=== PATIENT | female | born 1940 | race Two or more races ===

== ENCOUNTER → 2024-07-19 | Outpatient (CLI) | payer OTHER, MEDICAID, SELFPAY ==
[2024-07-19 12:54] LABS: Collection Type, Urine Clean Catch
[2024-07-19 13:06] LABS: Eosinophils % (Auto) 19 % (0-10); Hematocrit 36.4 % (36.0-46.0); Hemoglobin 11.8 g/dL (12.0-16.0); Lymphocytes % (Auto) 12 % (10-50); Mean Corpuscular HGB Conc 32.4 g/dl (31.0-37.0); Mean Corpuscular Hemoglobin 29.1 pg (25.0-35.0); Mean Corpuscular Volume 90 fL (80-100); Monocytes % (Auto) 6 % (0-12); Neutrophils % (Auto) 63 % (37-80); Platelet Count 244 Thou/mm3 (140-440); Red Blood Count 4.05 Miln/mm3 (4.00-5.20); White Blood Count 9.2 Thou/mm3 (3.6-11.0)
[2024-07-19 13:07] LABS: Basophils % (Auto) 0 % (0-2.5); Eosinophils # (Auto) 1.8 Thou/mm3 (0.0-0.5); Immature Granulocytes % (Auto) 0 % (0-0); Immature Granulocytes Auto 0.03 Thou/mm3 (0.00-0.00); Lymphocytes # (Auto) 1.1 Thou/mm3 (1.0-4.8); Monocytes # (Auto) 0.5 Thou/mm3 (0.0-0.8); Neutrophils # (Auto) 5.8 Thou/mm3 (1.8-7.7); Nucleated Red Blood Cell % 0 /100 WBC (0)
[2024-07-19 13:15] LABS: Bacteria,Urine 2+; Bilirubin,Urine Negative (Negative); Blood,Urine Negative (Negative); Clarity,Urine Clear (Clear/Hazy); Color,Urine Lt-Yellow (Lt Yel-Yel); Glucose, Urine Negative (Negative); Ketones,Urine Negative (Negative); Leukocyte Esterase,Urine Positive (Negative); Nitrite,Urine Positive (Negative); PH,Urine 6.5 (5.0-7.0); Protein,Urine Negative (Neg - Trace); RBC,Urine 4 /hpf (0-3); Specific Gravity,Urine 1.015 (1.001-1.035); Squamous Epithelial Cell,Urine < 1 /hpf (0-5); Urobilinogen,Urine Negative mg/dL (0.0-1.0); WBC,Urine 59 /hpf (0-5)
[2024-07-19 13:19] LABS: Glucose Estimated Average 160 mg/dL (80-131); Hemoglobin A1C 7.2 % Hgb (4.8-6.0)
[2024-07-19 13:22] LABS: Albumin, Serum 4.1 gm/dL (3.4-4.8); Anion Gap 10 (7-16); BUN/Creatinine Ratio 23 Ratio (12-20); Blood Urea Nitrogen 23 mg/dL (9-23); Calcium 9.5 mg/dL (8.3-10.6); Calcium (Corrected) 9.5 mg/dL (8.5-10.1); Carbon Dioxide 27.3 mMol/L (20.0-31.0); Chloride 102 mMol/L (98-107); Glucose 109 mg/dL (74-106); Osmolality,Calculated 282 (275-295); Phosphorous 4.1 mg/dL (2.4-5.1); Potassium 4.2 mMol/L (3.4-5.1); Sodium 139 mMol/L (136-145); eGFR 56 See Note
[2024-07-19 13:27] LABS: Culture Indicated,Urine Yes
[2024-07-20 02:07] LABS: Parathyroid Hormone Intact 35.5 pg/ml (18.5-88.0); Vitamin D 25 Hydroxy Total 66.2 ng/mL (7.3-40.2)
== END | disposition home or self-care (01) ==
PROVIDERS: PCP Family Medicine; Referring Provider Internal Medicine Nephrology; Visit Provider Internal Medicine Nephrology
DX: E11.22 Type 2 diabetes mellitus with diabetic chronic kidney disease (principal); N18.30 Chronic kidney disease, stage 3 unspecified; E55.9 Vitamin D deficiency, unspecified; N39.0 Urinary tract infection, site not specified
CPT/HCPCS: 36415; 80069; 81001; 82306; 83036; 83970; 85025; 87077; 87086; 87186

== ENCOUNTER → 2024-08-10 | Outpatient (CLI) | payer OTHER, MEDICAID, SELFPAY ==
[2024-08-10 11:24] LABS: Basophils # (Auto) 0.1 Thou/mm3 (0.0-0.2); Basophils % (Auto) 1 % (0-2.5); Eosinophils # (Auto) 0.8 Thou/mm3 (0.0-0.5); Eosinophils % (Auto) 10 % (0-10); Hematocrit 39.8 % (36.0-46.0); Hemoglobin 12.5 g/dL (12.0-16.0); Immature Granulocytes % (Auto) 0 % (0-0); Immature Granulocytes Auto 0.01 Thou/mm3 (0.00-0.00); Lymphocytes # (Auto) 1.1 Thou/mm3 (1.0-4.8); Lymphocytes % (Auto) 13 % (10-50); Mean Corpuscular HGB Conc 31.4 g/dl (31.0-37.0); Mean Corpuscular Hemoglobin 29.1 pg (25.0-35.0); Mean Corpuscular Volume 93 fL (80-100); Monocytes # (Auto) 0.6 Thou/mm3 (0.0-0.8); Monocytes % (Auto) 7 % (0-12); Neutrophils # (Auto) 5.9 Thou/mm3 (1.8-7.7); Neutrophils % (Auto) 69 % (37-80); Nucleated Red Blood Cell % 0 /100 WBC (0); Platelet Count 204 Thou/mm3 (140-440); RDW Standard Deviation 52.8 fL (36.4-46.3); Red Blood Count 4.29 Miln/mm3 (4.00-5.20); White Blood Count 8.6 Thou/mm3 (3.6-11.0)
[2024-08-10 11:37] LABS: Glucose Estimated Average 163 mg/dL (80-131); Hemoglobin A1C 7.3 % Hgb (4.8-6.0)
[2024-08-10 11:44] LABS: Alanine Aminotransferase 13 U/L (10-49); Albumin, Serum 4.3 gm/dL (3.4-4.8); Alkaline Phosphatase 59 U/L (46-116); Anion Gap 10 (7-16); Aspartate Amino Transferase 15 U/L (0-34); BUN/Creatinine Ratio 25 Ratio (12-20); Bilirubin,Direct 0.3 mg/dL (0.0-0.3); Bilirubin,Total 0.7 mg/dL (0.3-1.2); Blood Urea Nitrogen 25 mg/dL (9-23); Calcium 9.3 mg/dL (8.3-10.6); Carbon Dioxide 27.2 mMol/L (20.0-31.0); Cardiac Risk Estimate 2.3 RATIO (3.7-5.6); Chloride 103 mMol/L (98-107); Cholesterol 142 mg/dL (132-200); Glucose 100 mg/dL (74-106); HDL Cholesterol 61 mg/dL (40-60); LDL Cholesterol,Calculated 66 mg/dL (0-130); Osmolality,Calculated 283 (275-295); Potassium 4.1 mMol/L (3.4-5.1); Sodium 140 mMol/L (136-145); Total Protein 7.3 gm/dL (5.7-8.2); Triglycerides 75 mg/dL (30-150); eGFR 56 See Note
[2024-08-10 13:46] LABS: Creatinine MALB Rnd Ur 58 mg/dL (30-125); Microalbumin Creat Ratio 10 mg/gCrea (<30); Microalbumin, Random Urine 6 mg/L (0-300)
== END | disposition home or self-care (01) ==
PROVIDERS: PCP Family Medicine; Referring Provider Family Medicine; Visit Provider Family Medicine
DX: I12.9 Hypertensive chronic kidney disease with stage 1 through stage 4 chronic kidney disease, or unspecified chronic kidney disease (principal); E11.22 Type 2 diabetes mellitus with diabetic chronic kidney disease; N18.9 Chronic kidney disease, unspecified; E78.5 Hyperlipidemia, unspecified
CPT/HCPCS: 36415; 80048; 80061; 80076; 82043; 82570; 83036; 85025

== ENCOUNTER → 2024-11-08 | Outpatient (CLI) | payer OTHER, MEDICAID, SELFPAY ==
--- NOTE | 2024-11-08 10:20 | XR_ITS ---
Examination: Knee, left , 3 views Technique: Knee AP, lateral, oblique 3 views Date and time of exam: November 08, 2024 1030 hours INDICATIONS: Left knee pain 2 years. FINDINGS: Advanced tricompartment osteoarthritis No fracture or dislocation Small knee effusion IMPRESSION: Advanced tricompartment osteoarthritis, progressed compared with November 07, 2015
== END | disposition home or self-care (01) ==
PROVIDERS: PCP Family Medicine; Referring Provider Family Medicine; Visit Provider Family Medicine
DX: M17.12 Unilateral primary osteoarthritis, left knee (principal)
CPT/HCPCS: 73562

== ENCOUNTER 2024-12-25 09:52 | Outpatient (AMB) | payer OTHER, MEDICAID, SELFPAY ==
[2024-12-25 10:16] VITALS: BP 127/71; PULSE 85; RESP 18; TEMP 36.2; O2SAT 96; BMI 32.5
--- NOTE | 2024-12-25 10:16 | PD.ORTHCLVIS ---
Vital signs 12/25/24 10:16 Height 1.6 m Height Method Stated Weight 83.263 kg Weight Measurement Method Standing Scale BMI 32.5 BP 127/71 Blood Pressure Source Automatic Cuff Blood Pressure Location Left Upper Arm Position Sitting Respiration 18 Pulse 85 Pulse Source Monitor Temp 97.1 F Temp Source Temporal Artery Scan Pulse Oximetry (%) 96 Oxygen Delivery Method Room Air Med/Allergies Allergies & Medications Allergies No Known Allergies Allergy (Verified 12/25/24 10:16) Medication Reconciliation clopidogrel 75 mg tablet 75 mg PO QDAY Blood Thinner ##0 07/05/13 [History Confirmed 12/25/24] insulin glargine 100 unit/mL subcutaneous solution (Lantus U-100 Insulin) 38 unit subcut HS Diabetes #0 vials 07/05/13 [History Confirmed 12/25/24] gabapentin 300 mg capsule 300 mg PO BID 01/11/21 [History Confirmed 12/25/24] oxybutynin chloride 5 mg tablet 5 mg PO BID 01/11/21 [History Confirmed 12/25/24] tramadol 50 mg tablet 50 mg PO QID PRN Pain (Scale Score 7-10) 01/11/21 [History Confirmed 12/25/24] glimepiride 4 mg tablet 4 mg PO QDAY 10/27/23 [History Confirmed 12/25/24] hydralazine 50 mg tablet 50 mg PO TID 10/27/23 [History Confirmed 12/25/24] trazodone 50 mg tablet 50 mg PO HS 10/27/23 [History Confirmed 12/25/24] alendronate 70 mg tablet 70 mg PO QWEEK 11/21/23 [History Confirmed 12/25/24] calcium carbonate (Calcium 600) 600 mg PO BID 11/21/23 [History Confirmed 12/25/24] cilostazol 100 mg tablet 100 mg PO BID 11/21/23 [History Confirmed 12/25/24] Held on 11/22/23. Instructions: Resume on 11/29/23. HOLD until follow up with Manager [employer] potassium chloride 20 mEq tablet,extended release 20 meq PO QDAY 11/21/23 [History Confirmed 12/25/24] blood-glucose sensor (FreeStyle Tigre 3 Sensor device) #1 ea 11/22/23 [Rx] atorvastatin 80 mg tablet 80 mg PO QDAY 12/25/24 [History Confirmed 12/25/24] clotrimazole 1 % topical cream 1 applic topical BID 12/25/24 [History Confirmed 12/25/24] ferrous sulfate 325 mg (65 mg iron) tablet 325 mg PO QDAY 12/25/24 [History Confirmed 12/25/24] lisinopril 20 mg tablet 20 mg PO QDAY 12/25/24 [History Confirmed 12/25/24] Exam Exam Patient is in no acute distress and is cooperative with the examination today. Breathing is nonlabored. In no respiratory distress. Bilateral extremities were evaluated and demonstrates sensation intact to light touch. Palpable pedal pulses are present. No significant edema is present. Bilateral hips were examined. The patient has no pain with log roll of the hips. Internal rotation to 30 degrees and external rotation to 30 degrees is painless. Negative FADIR. The left knee was examined. The left knee is in varus alignment. Range of motion from 0-115 degrees. Knee is stable to varus and valgus as well as AP translation with <5mm. Patient has a negative McMurrays. There is no pain with patellofemoral compression and no crepitus noted. The knee is tender to palpation medially. The right knee was also examined. The right knee is in varus alignment. Range of motion from 0-120 degrees. Knee is stable to varus and valgus as well as AP translation with <5mm. Patient has a negative McMurrays. There is no pain with patellofemoral compression and no crepitus noted. The knee is tender to palpation medially. X-rays of the left knee demonstrates complete joint space loss and obliteration medially and laterally with osteophytes Assessment and Plan Problem List (1) Arthritis of left knee: Status: Acute Plan: Laureen is a pleasant 81-year-old female with severe left knee arthritis. Would like to get weightbearing x-rays of both knees. She would like a cortisone injection of the left knee which I think is reasonable as she is not a great candidate for surgery. Recommend knee cortisone injection as patient would like to proceed with conservative treatment at this time. The risks and benefits of the procedure were reviewed with the patient and patient gave verbal consent to continue with the procedure. Procedure: performed by Dr. Martinez Using sterile technique the left knee was thoroughly prepped with alcohol, and approximately 1 cc of Kenalog 40 mg/mL and 4 cc of 1% lidocaine was injected without resistance into the medial tibial femoral joint space. The patient tolerated the procedure. 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 Administered by: Gino Martinez MD on 12/25/24 10:30 Dose Route Admin Location Dispensed Lot Number Expiration Date [facility] Director Service 20 mL Infiltration 20 mL [id number] 11/01/27 24032-264-99 [facility] triamcinolone acetonide 40 mg/mL suspension for injection Performing Provider: Gino Martinez MD Performing Location: [facility] Administered by: Gino Martinez MD on 12/25/24 10:30 Dose Route Admin Location Dispensed Lot Number Expiration Date [facility] Director Service 40 mg intra-articular KNEE 1 mL [id number] 01/30/26 52965-995-28 MARGARET RUEDA MA Intake Visit Data Collection New Patient or Established: New Patient (never been to [facility]) Reason for Visit:: LEFT KNEE PAIN Seen by Clinical Staff ONLY (RN/MA): No Supply Officer Required: No PCP or OBGYN visit in last 3 months: Yes Hx Now: No Do You Feel Safe at Home: Yes Authorities Contacted: N/A Questionairres Past Medical History Past Medical History Have you ever been diagnosed with any of the following: Neurological Problems Transient Ischemic Attacks (TIA): Yes Cardiology Problems Myocardial Infarction: Yes Cardiac Arrhythmia: No Atrial Fibrillation: No Angina: No Heart Murmur: No Coronary Artery Disease: Yes Atherosclerotic Heart Disease: No Peripheral Vascular Disease: No Hypercholesterolemia: Yes Aneurysm: No Congestive Heart Failure: Yes Congenital Heart Disease: No Valvular Heart Disease: Yes (vavle replacement) Rheumatic Fever: No Cardiomyopathy: No Edema: Yes (Bilateral lower extremities) Pericarditis: No Cellulitis: No Deep Vein Thrombosis: No Hypertension: Yes Hypotension: No Varicose Veins: Yes Respiratory Problems Chronic Obstructive Pulmonary Disease (COPD): No Asthma: No Genital/Urinary Problems Renal Disease: No Reproductive Problems Pelvic Inflammatory Disease: No Head,Eye,Nose,Throat Problems Blind: No Endocrine Problems Diabetes Mellitus Type 1: Yes Diabetes Mellitus Type 2: No Surgical History Valve Replacement: Yes Pacemaker: No Subjective Visit Visit for: new patient and knee (LEFT) Immunization / Flu Flu Vaccine in the Last 12 Months: No Flu Vaccine Exclusion Criteria: Refused by Patient History of Present Illness Chief complaint: left knee pain Date of injury / onset of symptoms: 3 YEARS Juan Alberto is a pleasant 84-year-old female with bilateral knee pain worse on the left. Is been ongoing for quite a while. She has not had any injections. She has had significant medical issues including an NSTEMI and is not a great candidate for surgery. They would like nonoperative treatment Personal History Occupation: RETIRED Pain Pain level (0-10): 7 Pain duration: WITH MOVEMENT Pain location: anterior Pain quality: dull, aching and other (specify) (SWELLING) Pain timing: night, increases with activity and stairs Associated signs & symptoms: other (specify) Ambulatory data Ambulatory device: walker Treatments Improvement with previous injections: No Improvement with PT: No Improvement with NSAIDS: no Review of Systems Review of Systems: All systems negative unless otherwise noted in HPI.
--- NOTE | 2024-12-25 10:26 | XR_ITS ---
Examination: Bilateral knees 2 views Standing right lateral knee left lateral knee 2 views Right axial knee left axial knee 2 views TECHNIQUE: Bilateral AP knees standing single view, bilateral PA knees standing single view flexion Standing right lateral knee left lateral knee 2 views Right axial knee left axial knee 2 views total 6 views Date and time: December 25, 2024 10:54 AM INDICATIONS: Bilateral knee pain 5 years. FINDINGS: Prominent osteopenia Moderate narrowing osteoarthritis medial joint space and patellofemoral joint space right knee Small right knee effusion Advanced narrowing [id number] medial joint space left knee Advanced osteoarthritis left patellofemoral joint No fracture IMPRESSION: Moderate narrowing medial patellofemoral joint spaces right knee Advanced narrowing [id number] medial joint space left knee Advanced osteoarthritis left patellofemoral joint
== END 2024-12-25 10:38 | disposition home or self-care (01) ==
LOC: HODSRG 09:52
PROVIDERS: PCP Family Medicine; Referring Provider Family Medicine; Supervising Provider Orthopaedic Surgery Adult Reconstructive Orthopaedic Surgery; Visit Provider Orthopaedic Surgery Adult Reconstructive Orthopaedic Surgery
DX: M17.12 Unilateral primary osteoarthritis, left knee (principal); M25.562 Pain in left knee; M25.561 Pain in right knee; E78.00 Pure hypercholesterolemia, unspecified; I25.2 Old myocardial infarction; I10 Essential (primary) hypertension; E10.9 Type 1 diabetes mellitus without complications; I25.10 Atherosclerotic heart disease of native coronary artery without angina pectoris
CPT/HCPCS: 20610; 73564; 99204; J3301; J3490; G0463

== ENCOUNTER → 2025-02-20 | Outpatient (CLI) | payer OTHER, MEDICAID, SELFPAY ==
[2025-02-20 10:51] LABS: Collection Type, Urine Clean Catch
[2025-02-20 12:00] LABS: Basophils # (Auto) 0.1 Thou/mm3 (0.0-0.2); Basophils % (Auto) 1 % (0-2.5); Eosinophils # (Auto) 1.4 Thou/mm3 (0.0-0.5); Eosinophils % (Auto) 16 % (0-10); Hematocrit 37.2 % (36.0-46.0); Hemoglobin 12.2 g/dL (12.0-16.0); Immature Granulocytes Auto 0.03 Thou/mm3 (0.00-0.00); Lymphocytes # (Auto) 1.3 Thou/mm3 (1.0-4.8); Lymphocytes % (Auto) 15 % (10-50); Mean Corpuscular HGB Conc 32.8 g/dl (31.0-37.0); Mean Corpuscular Hemoglobin 31.4 pg (25.0-35.0); Mean Corpuscular Volume 96 fL (80-100); Monocytes # (Auto) 0.7 Thou/mm3 (0.0-0.8); Monocytes % (Auto) 8 % (0-12); Neutrophils # (Auto) 5.2 Thou/mm3 (1.8-7.7); Neutrophils % (Auto) 61 % (37-80); Nucleated Red Blood Cell # 0.00 Thou/mm3 (0.00-0.00); Nucleated Red Blood Cell % 0 /100 WBC (0); Platelet Count 194 Thou/mm3 (140-440); RDW Standard Deviation 49.0 fL (36.4-46.3); Red Blood Count 3.88 Miln/mm3 (4.00-5.20); White Blood Count 8.6 Thou/mm3 (3.6-11.0)
[2025-02-20 12:07] LABS: Bacteria,Urine 1+; Bilirubin,Urine Negative (Negative); Blood,Urine Negative (Negative); Clarity,Urine Clear (Clear/Hazy); Color,Urine Colorless (Lt Yel-Yel); Glucose, Urine Negative (Negative); Ketones,Urine Negative (Negative); Leukocyte Esterase,Urine Negative (Negative); Nitrite,Urine Positive (Negative); PH,Urine 7.0 (5.0-7.0); Protein,Urine Negative (Neg - Trace); RBC,Urine 2 /hpf (0-3); Specific Gravity,Urine 1.009 (1.001-1.035); Squamous Epithelial Cell,Urine < 1 /hpf (0-5); Urobilinogen,Urine Negative mg/dL (0.0-1.0); WBC,Urine 5 /hpf (0-5)
[2025-02-20 12:07] LABS: Glucose Estimated Average 177 mg/dL (80-131); Hemoglobin A1C 7.8 % Hgb (4.8-6.0)
[2025-02-20 12:08] LABS: Creatinine,Random Urine 21 mg/dL (30-125); Protein Total, Random Urine 7 mg/dL (1-14)
[2025-02-20 12:21] LABS: Albumin, Serum 4.2 gm/dL (3.4-4.8); Anion Gap 7 (7-16); BUN/Creatinine Ratio 18 Ratio (12-20); Blood Urea Nitrogen 22 mg/dL (9-23); Calcium 10.0 mg/dL (8.3-10.6); Calcium (Corrected) 10.0 mg/dL (8.5-10.1); Carbon Dioxide 28.3 mMol/L (20.0-31.0); Chloride 106 mMol/L (98-107); Creatinine (Component) 1.2 mg/dL (0.6-1.3); Glucose 96 mg/dL (74-106); Osmolality,Calculated 284 (275-295); Phosphorous 3.5 mg/dL (2.4-5.1); Potassium 4.8 mMol/L (3.4-5.1); Sodium 141 mMol/L (136-145); eGFR 45 See Note
== END | disposition home or self-care (01) ==
LOC: COPL 10:08
PROVIDERS: PCP Family Medicine; Referring Provider Internal Medicine Nephrology; Visit Provider Internal Medicine Nephrology
DX: R80.9 Proteinuria, unspecified (principal); I10 Essential (primary) hypertension; E11.9 Type 2 diabetes mellitus without complications
CPT/HCPCS: 36415; 80069; 81001; 82570; 83036; 84156; 85025

== ENCOUNTER → 2025-03-20 | Outpatient (CLI) | payer OTHER, MEDICAID, SELFPAY ==
--- NOTE | 2025-03-20 11:49 | EKG_ITS ---
[facility] Test Date: 2025-03-20 Pat Name: MALLIKA HADDAD Department: Room: - Gender: Female Rail Walker: ELE : 1940 Requested By: Javier Lim Order Number: [id number] Reading MD: Javier Lim Measurements Intervals [place] Rate: 82 P: 90 UT: 170 QRS: -38 QRSD: 104 T: 86 QT: 382 QTc: 448 Interpretive Statements SINUS RHYTHM WITH OCCASIONAL VENTRICULAR PREMATURE COMPLEXES WITH OCCASIONAL SUPRAVENTRICULAR PREMATURE COMPLEXES MARKED LEFT AXIS DEVIATION [QRS AXIS < -30] PATTERN CONSISTENT WITH PULMONARY DISEASE MODERATE VOLTAGE CRITERIA FOR LVH, CONSIDER NORMAL VARIANT [MEETS CRITERIA IN ONE OF: R(aVL), S(V1), R(V5), R(V5/V6)+S(V1)] NONSPECIFIC T-WAVE ABNORMALITY Compared to ECG 10/26/2023 18:49:56 Ventricular premature complex(es) now present Left-axis deviation now present T-wave abnormality now present First degree AV block no longer present ST (T wave) deviation no longer present /store/S0/[id number]/ecg/[id number].pdf
[2025-03-20 12:20] LABS: Glucose,Fasting 72 mg/dL (74-106)
== END | disposition home or self-care (01) ==
LOC: COPL 10:59
PROVIDERS: PCP Family Medicine; Referring Provider Ophthalmology; Visit Provider Ophthalmology
DX: Z01.818 Encounter for other preprocedural examination (principal); Z01.810 Encounter for preprocedural cardiovascular examination
CPT/HCPCS: 36415; 82947; 93005

== ENCOUNTER 2025-03-28 08:47 | Outpatient (AMB) | payer OTHER, MEDICAID, SELFPAY ==
--- NOTE | 2025-03-28 08:59 | ORTHONT_ITS ---
Vital signs 03/28/25 09:08 Height 1.6 m Height Method Measured Weight 84.453 kg Weight Measurement Method Standing Scale BMI 33.0 BP 148/64 H Blood Pressure Source Automatic Cuff Blood Pressure Location Left Upper Arm Position Sitting Respiration 18 Pulse 87 Pulse Source Monitor Temp 97.4 F Temp Source Temporal Artery Scan Pulse Oximetry (%) 94 L Oxygen Delivery Method Room Air Med/Allergies Allergies & Medications Allergies No Known Allergies Allergy (Verified 03/28/25 09:46) Medication Reconciliation clopidogrel 75 mg tablet 75 mg PO QDAY Blood Thinner ##0 07/05/13 [History Conf irmed 03/28/25] insulin glargine 100 unit/mL subcutaneous solution (Lantus U-100 Insulin) 38 unit subcut HS Diabetes #0 vials 07/05/13 [History Confirmed 03/28/25] gabapentin 300 mg capsule 300 mg PO BID 01/11/21 [History Confirmed 03/28/25] oxybutynin chloride 5 mg tablet 5 mg PO BID 01/11/21 [History Confirmed 03/28/25] tramadol 50 mg tablet 50 mg PO QID PRN Pain (Scale Score 7-10) 01/11/21 [History Confirmed 03/28/25] glimepiride 4 mg tablet 4 mg PO QDAY 10/27/23 [History Confirmed 03/28/25] hydralazine 50 mg tablet 50 mg PO TID 10/27/23 [History Confirmed 03/28/25] trazodone 50 mg tablet 50 mg PO HS 10/27/23 [History Confirmed 03/28/25] alendronate 70 mg tablet 70 mg PO QWEEK 11/21/23 [History Confirmed 03/28/25] calcium carbonate (Calcium 600) 600 mg PO BID 11/21/23 [History Confirmed 03/28/25] cilostazol 100 mg tablet 100 mg PO BID 11/21/23 [History Confirmed 03/28/25] Held on 11/22/23. Instructions: Resume on 11/29/23. HOLD until follow up with Director [employer] potassium chloride 20 mEq tablet,extended release 20 meq PO QDAY 11/21/23 [History Confirmed 03/28/25] blood-glucose sensor (FreeStyle Tigre 3 Sensor device) #1 ea 11/22/23 [Rx Confirmed 03/28/25] atorvastatin 80 mg tablet 80 mg PO QDAY 12/25/24 [History Confirmed 03/28/25] clotrimazole 1 % topical cream 1 applic topical BID 12/25/24 [History Confirmed 03/28/25] ferrous sulfate 325 mg (65 mg iron) tablet 325 mg PO QDAY 12/25/24 [History Confirmed 03/28/25] lisinopril 20 mg tablet 20 mg PO QDAY 12/25/24 [History Confirmed 03/28/25] Exam Exam Patient is in no acute distress and is cooperative with the examination today. Breathing is nonlabored. In no respiratory distress. Bilateral extremities were evaluated and demonstrates sensation intact to light touch. Palpable pedal pulses are present. No significant edema is present. Bilateral hips were examined. The patient has no pain with log roll of the hips. Internal rotation to 30 degrees and external rotation to 30 degrees is painless. Negative FADIR. The left knee was examined. The left knee is in varus alignment. Range of motion from 0-115 degrees. Knee is stable to varus and valgus as well as AP translation with <5mm. Patient has a negative McMurrays. There is no pain with patellofemoral compression and no crepitus noted. The knee is tender to palpation medially. The right knee was also examined. The right knee is in varus alignment. Range of motion from 0-120 degrees. Knee is stable to varus and valgus as well as AP translation with <5mm. Patient has a negative McMurrays. There is no pain with patellofemoral compression and no crepitus noted. The knee is tender to palpation medially. X-rays of the left knee demonstrates complete joint space loss and obliteration medially and laterally with osteophytes Assessment and Plan Problem List (1) Arthritis of left knee: Status: Acute Plan: Laureen is a pleasant 81-year-old female with severe left knee arthritis. Would like to get weightbearing x-rays of both knees. She would like a cortisone injection of the left knee which I think is reasonable as she is not a great candidate for surgery. Recommend knee cortisone injection as patient would like to proceed with conservative treatment at this time. The risks and benefits of the procedure were reviewed with the patient and patient gave verbal consent to continue with the procedure. Procedure: performed by Dr. Martinez Using sterile technique the Right knee was thoroughly prepped with alcohol, and approximately 1 cc of Depo-Medrol 80mg/mL and 4 cc of 0.2% ropivacaine was injected without resistance into the medial tibial femoral joint space. The patient tolerated the procedure. Recommend knee cortisone injection as patient would like to proceed with conservative treatment at this time. The risks and benefits of the procedure were reviewed with the patient and patient gave verbal consent to continue with the procedure. Procedure: performed by Dr. Martinez Using sterile technique the leftknee was thoroughly prepped with alcohol, and approximately 1 cc of Depo- Medrol 80mg/mL and 4 cc of 0.2% ropivacaine was injected without resistance into the medial tibial femoral joint space. The patient tolerated the procedure. Advanced Care Planning Discussion Advance care planning discussed with:: patient and child Office Procedures GNS Level of Care Nursing/Assessment Patient Status: Established Patient Nursing Assessment/Reassesment: Medication Reconciliation, Update PMH in EMR and Vital Signs Coordination of Care: Complex Care and Chronic Disease 1-5, Education Complex Pt/Fam, Consent,records obtained, informed consent, Results/Orders obtained and Staff clarify orders Established Patient Charge Established Patient Point Assignment: 95 Established Patient Point Charge: EP Level 3 (80-115) Surgical Proc/IM SQ injection Minor Surgical Procedure: Yes (KNEE INJECTION) Medication Given Medication Given Medication Given: Yes Documented Dose Given: 1 Route: Infiitration Medication Given Medication Given Medication Given: Yes Documented Dose Given: 1 Route: Infiitration Medication Given Medication Given Medication Given: Yes Documented Dose Given: 4 Route: Infiitration Medication Given Medication Given Medication Given: Yes Documented Dose Given: 4 Route: Infiitration Office Meds methylprednisolone acetate 80 mg/mL suspension for injection Performing Provider: Gino Martinez MD Performing Location: [facility] Administered by: Gino Martinez MD on 03/28/25 09:47 Dose Route Admin Location Dispensed Lot Number Expiration Date Pack age [facility] Lathe Machine Operator 80 mg intra-articular KNEE 1 mL [id number] 06/02/26 [address]-0 7 [id number] [employer] methylprednisolone acetate 80 mg/mL suspension for injection Performing Provider: Gino Martinez MD Performing Location: [facility] Administered by: Gino Martinez MD on 03/28/25 09:47 Dose Route Admin Location Dispensed Lot Number Expiration Date Pack age [facility] Lathe Machine Operator 80 mg intra-articular KNEE 1 mL [id number] 06/02/26 [address]-4 7 [id number] [employer] ropivacaine (PF) 2 mg/mL (0.2 %) injection solution Performing Provider: Gino Martinez MD Performing Location: [facility] Administered by: Gino Martinez MD on 03/28/25 09:47 Dose Route Admin Location Dispensed Lot Number Expiration Date Pack age [facility] Lathe Machine Operator 20 mL Infiltration KNEE 20 mL [id number] 08/03/27 08152-728-23 [id number] [facility] ropivacaine (PF) 2 mg/mL (0.2 %) injection solution Performing Provider: Gino Martinez MD Performing Location: [facility] Administered by: Gino Martinez MD on 03/28/25 09:47 Dose Route Admin Location Dispensed Lot Number Expiration Date Pack age [facility] Lathe Machine Operator 20 mL Infiltration KNEE 20 mL [id number] 08/03/27 09807-601-02 [id number] [facility] Intake Visit Data Collection New Patient or Established: Established Patient (seen at [facility] within 3 years) Reason for Visit:: 3 MONTH F/U BILATERAL KNEE INJECTION Seen by Clinical Staff ONLY (RN/MA): No Admitting Representative Required: No PCP or OBGYN visit in last 3 months: Yes Hx Now: No Do You Feel Safe at Home: Yes Authorities Contacted: N/A Questionairres Past Medical History Past Medical History Have you ever been diagnosed with any of the following: Neurological Problems Transient Ischemic Attacks (TIA): Yes Cardiology Problems Myocardial Infarction: Yes Cardiac Arrhythmia: No Atrial Fibrillation: No Angina: No Heart Murmur: No Coronary Artery Disease: Yes Atherosclerotic Heart Disease: No Peripheral Vascular Disease: No Hypercholesterolemia: Yes Aneurysm: No Congestive Heart Failure: Yes Congenital Heart Disease: No Valvular Heart Disease: Yes (vavle replacement) Rheumatic Fever: No Cardiomyopathy: No Edema: Yes (Bilateral lower extremities) Pericarditis: No Cellulitis: No Deep Vein Thrombosis: No Hypertension: Yes Hypotension: No Varicose Veins: Yes Respiratory Problems Chronic Obstructive Pulmonary Disease (COPD): No Asthma: No Genital/Urinary Problems Renal Disease: No Reproductive Problems Pelvic Inflammatory Disease: No Head,Eye,Nose,Throat Problems Blind: No Endocrine Problems Diabetes Mellitus Type 1: Yes Diabetes Mellitus Type 2: No Surgical History Valve Replacement: Yes Pacemaker: No Subjective Visit Visit for: follow up visit and knee (LEFT) Immunization / Flu Flu Vaccine in the Last 12 Months: No Flu Vaccine Exclusion Criteria: Refused by Patient History of Present Illness Chief complaint: left knee pain Date of injury / onset of symptoms: 3 YEARS Juan Alberto is a pleasant 84-year-old female with bilateral knee pain worse on the left. Is been ongoing for quite a while. She has had significant medical issues including an NSTEMI and is not a great candidate for surgery. They would like nonoperative treatment. She would like to try repeat injections as the last one did work Personal History Occupation: RETIRED Pain Pain level (0-10): 7 Pain duration: WITH MOVEMENT Pain location: anterior Pain quality: dull, aching and other (specify) (SWELLING) Pain timing: night, increases with activity and stairs Associated signs & symptoms: other (specify) Ambulatory data Ambulatory device: walker Treatments Improvement with previous injections: No Improvement with PT: No Improvement with NSAIDS: no Review of Systems Review of Systems: All systems negative unless otherwise noted in HPI.
[2025-03-28 09:08] VITALS: BP 148/64; PULSE 87; RESP 18; TEMP 36.3; O2SAT 94; BMI 33.0
== END 2025-03-28 09:10 | disposition home or self-care (01) ==
LOC: HODSRG 08:47
PROVIDERS: PCP Family Medicine; Referring Provider Family Medicine; Supervising Provider Orthopaedic Surgery Adult Reconstructive Orthopaedic Surgery; Visit Provider Orthopaedic Surgery Adult Reconstructive Orthopaedic Surgery
DX: M17.12 Unilateral primary osteoarthritis, left knee (principal); I11.0 Hypertensive heart disease with heart failure; I50.9 Heart failure, unspecified; E10.9 Type 1 diabetes mellitus without complications; M25.562 Pain in left knee; M25.561 Pain in right knee; I25.2 Old myocardial infarction; Z86.73 Personal history of transient ischemic attack (TIA), and cerebral infarction without residual deficits; I25.10 Atherosclerotic heart disease of native coronary artery without angina pectoris; E78.00 Pure hypercholesterolemia, unspecified
CPT/HCPCS: 20610; 99213; J1010; J2795; G0463

== ENCOUNTER → 2025-05-22 | Outpatient (CLI) | payer OTHER, MEDICAID, SELFPAY ==
[2025-05-22 10:44] LABS: Collection Type, Urine Clean Catch
[2025-05-22 11:00] LABS: Basophils # (Auto) 0.0 Thou/mm3 (0.0-0.2); Basophils % (Auto) 1 % (0-2.5); Eosinophils # (Auto) 0.7 Thou/mm3 (0.0-0.5); Eosinophils % (Auto) 8 % (0-10); Hematocrit 34.4 % (36.0-46.0); Hemoglobin 11.1 g/dL (12.0-16.0); Immature Granulocytes Auto 0.04 Thou/mm3 (0.00-0.00); Lymphocytes # (Auto) 1.0 Thou/mm3 (1.0-4.8); Lymphocytes % (Auto) 11 % (10-50); Mean Corpuscular HGB Conc 32.3 g/dl (31.0-37.0); Mean Corpuscular Hemoglobin 31.1 pg (25.0-35.0); Mean Corpuscular Volume 96 fL (80-100); Monocytes # (Auto) 0.6 Thou/mm3 (0.0-0.8); Monocytes % (Auto) 7 % (0-12); Neutrophils # (Auto) 6.1 Thou/mm3 (1.8-7.7); Neutrophils % (Auto) 72 % (37-80); Nucleated Red Blood Cell # 0.00 Thou/mm3 (0.00-0.00); Nucleated Red Blood Cell % 0 /100 WBC (0); Platelet Count 164 Thou/mm3 (140-440); RDW Standard Deviation 53.3 fL (36.4-46.3); Red Blood Count 3.57 Miln/mm3 (4.00-5.20); White Blood Count 8.5 Thou/mm3 (3.6-11.0)
[2025-05-22 11:07] LABS: Bacteria,Urine 3+; Bilirubin,Urine Negative (Negative); Blood,Urine Negative (Negative); Clarity,Urine Clear (Clear/Hazy); Color,Urine Lt-Yellow (Lt Yel-Yel); Glucose, Urine Negative (Negative); Ketones,Urine Negative (Negative); Leukocyte Esterase,Urine Positive (Negative); Nitrite,Urine Negative (Negative); PH,Urine 6.5 (5.0-7.0); Protein,Urine Negative (Neg - Trace); RBC,Urine 3 /hpf (0-3); Specific Gravity,Urine 1.015 (1.001-1.035); Squamous Epithelial Cell,Urine 2 /hpf (0-5); Urobilinogen,Urine Negative mg/dL (0.0-1.0); WBC,Urine 13 /hpf (0-5)
[2025-05-22 11:09] LABS: Glucose Estimated Average 174 mg/dL (80-131); Hemoglobin A1C 7.7 % Hgb (4.8-6.0)
[2025-05-22 11:11] LABS: Albumin, Serum 4.5 gm/dL (3.4-4.8); Anion Gap 8 (7-16); BUN/Creatinine Ratio 23 Ratio (12-20); Blood Urea Nitrogen 36 mg/dL (9-23); Calcium 9.3 mg/dL (8.3-10.6); Calcium (Corrected) 9.3 mg/dL (8.5-10.1); Carbon Dioxide 28.1 mMol/L (20.0-31.0); Chloride 106 mMol/L (98-107); Creatinine (Component) 1.6 mg/dL (0.6-1.3); Glucose 147 mg/dL (74-106); Osmolality,Calculated 294 (275-295); Parathyroid Hormone Intact 73.8 pg/ml (18.5-88.0); Phosphorous 4.9 mg/dL (2.4-5.1); Potassium 5.6 mMol/L (3.4-5.1); Sodium 142 mMol/L (136-145); eGFR 32 See Note
[2025-05-22 11:16] LABS: Vitamin D 25 Hydroxy Total 57.8 ng/mL (7.3-40.2)
== END | disposition home or self-care (01) ==
PROVIDERS: PCP Family Medicine; Referring Provider Internal Medicine Nephrology; Visit Provider Internal Medicine Nephrology
DX: E11.9 Type 2 diabetes mellitus without complications (principal); E55.9 Vitamin D deficiency, unspecified
CPT/HCPCS: 36415; 80069; 81001; 82306; 83036; 83970; 85025

== ENCOUNTER 2025-06-06 15:06 | Inpatient (IN) | payer OTHER, MEDICAID, MEDICARE, SELFPAY ==
[2025-06-06] VITALS (8 sets, daily range): BP systolic 113–156; BP diastolic 54–108; PULSE 72–88; RESP 18–93; TEMP 36.9–37.3; O2SAT 93–98; BMI 31.7
--- NOTE | 2025-06-06 15:09 | EKG_ITS ---
[facility] Test Date: 2025-06-06 Pat Name: MALLIKA HADDAD Department: Room: - Gender: Female Epic Ambulatory Analyst: : 1940 Requested By: ED Temporary Provider Order Number: [id number] Reading MD: ED Temporary Provider Measurements Intervals [place] Rate: 76 P: 66 GA: 181 QRS: -48 QRSD: 108 T: 85 QT: 408 QTc: 461 Interpretive Statements SINUS RHYTHM WITH OCCASIONAL SUPRAVENTRICULAR PREMATURE COMPLEXES PATTERN CONSISTENT WITH PULMONARY DISEASE LEFT ANTERIOR FASCICULAR BLOCK [QRS AXIS <= -45, QR IN I, RS IN II] NONSPECIFIC T-WAVE ABNORMALITY Compared to ECG 03/20/2025 11:53:40 Left anterior fascicular block now present Ventricular premature complex(es) no longer present Left-axis deviation no longer present T-wave abnormality still present /store/S0/[id number]/ecg/[id number].pdf
--- NOTE | 2025-06-06 15:16 | XR_ITS ---
EXAMINATION: AP chest single view TECHNIQUE: Upright AP chest single view Date and time: June 06, 2025, 1532 hours, comparison February 23, 2024 INDICATIONS: Cough and shortness of breath today. FINDINGS: Mild heart failure Mild enlargement cardiac contour, prominent vascular congestion, CABG, prosthetic aortic valve noted Pneumonia right base and right middle lobe with possible right pleural fluid IMPRESSION: Mild heart failure Significant pneumonia right base and right middle lobe
--- NOTE | 2025-06-06 15:21 | PD.EDADULT ---
ED General RME/HPI General Chief complaint: Chest Pain Stated complaint: Chest pain Time Seen by Provider: 06/06/25 15:15 Arrival date/time: 06/06/25 15:06 CC: Cough with mild shortness of breath denies fever chest pain difficulty breathing. 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 Related Data Home Medications ?Medication ?Instructions ?Recorded ?Confirmed clopidogrel 75 mg tablet 75 mg PO QDAY Blood Thinner ##0 07/05/13 03/28/25 insulin glargine 100 unit/mL 38 unit subcut HS Diabetes #0 vials 07/05/13 03/28/25 subcutaneous solution (Lantus U-100 Insulin) gabapentin 300 mg capsule 300 mg PO BID 01/11/21 03/28/25 oxybutynin chloride 5 mg tablet 5 mg PO BID 01/11/21 03/28/25 tramadol 50 mg tablet 50 mg PO QID PRN Pain (Scale Score 01/11/21 03/28/25 7-10) glimepiride 4 mg tablet 4 mg PO QDAY 10/27/23 03/28/25 hydralazine 50 mg tablet 50 mg PO TID 10/27/23 03/28/25 trazodone 50 mg tablet 50 mg PO HS 10/27/23 03/28/25 alendronate 70 mg tablet 70 mg PO QWEEK 11/21/23 03/28/25 calcium carbonate (Calcium 600) 600 mg PO BID 11/21/23 03/28/25 cilostazol 100 mg tablet 100 mg PO BID 11/21/23 03/28/25 Held on 11/22/23. Instructions: Resume on 11/29/23. HOLD until follow up with Medical Record Transcriber potassium chloride 20 mEq 20 meq PO QDAY 11/21/23 03/28/25 tablet,extended release atorvastatin 80 mg tablet 80 mg PO QDAY 12/25/24 03/28/25 clotrimazole 1 % topical cream 1 applic topical BID 12/25/24 03/28/25 ferrous sulfate 325 mg (65 mg 325 mg PO QDAY 12/25/24 03/28/25 iron) tablet lisinopril 20 mg tablet 20 mg PO QDAY 12/25/24 03/28/25 Previous Rx's ?Medication ?Instructions ?Recorded blood-glucose sensor ([facility] - [employer] #1 ea 11/22/23 Tigre 3 Sensor device) Allergies Allergy/AdvReac Type Severity Reaction Status Date / Time No Known Allergies Allergy Verified 06/06/25 15:29 Review of Systems Review of Systems Narrative Review of Systems: GEN: No fever, no chills, no weight loss EYES: No discharge, no visual changes, no pain HEENT: No ear pain, no congestion, no sore throat PULM: + shortness of breath, + cough, no congestion CV: No chest pain, no dyspnea on exertion, no palpitations GI: No nausea, no vomiting, no diarrhea, no pain, no constipation : No frequency, no urgency, no dysuria MUSC/SKEL: No joint pain, no back pain SKIN: No rash PSYCH: No hallucinations, no depression HEME/LYMPH: No easy bleeding or bruising tendencies NEURO: No weakness, no headache Past Medical History Past Medical History NEUROLOGIC: Positive Transient Ischemic Attacks (TIA); Negative Neurological Disorders CARDIAC: Positive Cardiac Disorders, Myocardial Infarction, Coronary Artery Disease, Hypercholesterolemia, Congestive Heart Failure, Valvular Heart Disease (vavle replacement), Edema (Bilateral lower extremities), Hypertension and Varicose Veins; Negative Cardiac Arrhythmia, Atrial Fibrillation, Angina, Heart Murmur, Atherosclerotic Heart Disease, Peripheral Vascular Disease, Aneurysm, Congenital Heart Disease, Rheumatic Fever, Cardiomyopathy, Pericarditis, Cellulitis, Deep Vein Thrombosis or Hypotension RESPIRATORY: Negative Chronic Obstructive Pulmonary Disease (COPD) or Asthma GASTROINTESTINAL: Negative Gastrointestinal Disorders GENITOURINARY: Negative Genitourinary Disorders or Renal Disease REPRODUCTIVE: Negative Pelvic Inflammatory Disease MUSCULOSKELETAL: Negative Musculoskeletal Disorders ENT: Negative Blind ENDOCRINE: Positive Diabetes Mellitus Type 1; Negative Diabetes Mellitus Type 2 HEMATOLOGIC: Negative Blood Disorders OTHER HISTORY: Negative Autoimmune Disease Family History FAMILY HISTORY: Positive Family Cardiac Disorders, Family Cancer (Mom) and Family Surgery; Negative Family Psychiatric Problems, Family Respiratory Disorders, Family Gastrointestinal Problems or Family Anesthesia Reaction Surgical History SURGICAL: Positive Valve Replacement; Negative Pacemaker Social History SMOKING STATUS: Former smoker SECOND HAND EXPOSURE: No SUBSTANCE USE: does not use ED Exam Narrative Physical exam: [General: Obese not in any acute distress Head normocephalic HEENT: Within acceptable limits Neck is supple nontender Chest equal chest rise nontender to palpation Respiratory: End expiratory crackles, dry noncombative adductive cough. No tachypnea. CV: Rate rhythm is regular no murmurs rubs or clicks Abdomen is distended secondary to body habitus soft nontender no masses positive bowel sounds all 4 quadrants Back: No CVA tenderness no spinous process tenderness from cervical spine thoracic and lumbar spine Skin: Intact no petechiae rash induration ulceration or crepitus Extremities: Moving all extremity against resistance cap refill less than 2 seconds neurosensory intact. She has significant pitting edema to the dorsum of the feet and the lower extremities intermediate up the lower leg. No thigh edema or abdominal pitting edema. Neuro: Awake alert oriented x3 Glascow coma 15 no focal deficits] Course Course Course Narrative: Reassessment of this patient at 2041 after 40 of Lasix given the patient is diuresed almost 2 L of clear yellow urine, oxygen saturations of brain between 91 and 93% on room air the patient is not tachypneic. States that her breathing is gotten somewhat easier. But the condition continues to have pitting edema although mildly improved. At this time my concern is whether the patient can tolerate going home after such strong diuresis or needs to be watched overnight to complete the diuresis and getting extra couple doses of IV antibiotics for the pneumonia. Patient is afebrile and nontoxic-appearing patient's case presented to the attending Dr. Carreno, who will review the case. Quality Measures none Orders Category Date Time Status EKG (ED ONLY) *Do not use* NOW Care 06/06/25 15:09 Completed Khoury [Urinary Catheter] QS Care 06/06/25 17:37 Active Saline [Insert IV] NOW Care 06/06/25 16:15 Active EKG (ED Only) Stat Exams 06/06/25 15:09 Draft XR chest 1V Stat Exams 06/06/25 15:16 Completed B-Type Natriuretic Peptide Stat Lab 06/06/25 15:31 Completed CBC Stat Lab 06/06/25 15:31 Completed Comprehensive Metabolic Panel Stat Lab 06/06/25 15:31 Completed Drug Screen,Urine Stat Lab 06/06/25 17:36 Completed LDH (Lactate Dehydrogenase) Stat Lab 06/06/25 15:31 Completed Magnesium Stat Lab 06/06/25 15:31 Completed Partial Thromboplastin Time Stat Lab 06/06/25 15:31 Completed Prothrombin Time with INR Stat Lab 06/06/25 15:31 Completed Troponin I Stat Lab 06/06/25 15:31 Completed Urinalysis, C/S if Indicated Stat Lab 06/06/25 17:36 Completed Furosemide Inj [Lasix Inj] Med 06/06/25 19:19 Discontinued 40 mg IVP X1 ONE cefTRIAXone/D5w 1gm IV premix [Rocephin/D5w 1gm IV Med 06/06/25 16:16 Discontinued premix] 1 gm in 50 ml IV X1 hydrALAZINE INJ [Apresoline Inj] Med 06/06/25 15:20 Discontinued 10 mg IVP X1 ONE Vital Signs Vital signs: Vital Signs Temperature 99.1 F 06/06/25 15:13 Pulse Rate 72 06/06/25 15:13 Respiratory Rate 20 06/06/25 15:13 Blood Pressure 143/72 H 06/06/25 15:13 Pulse Oximetry (%) 95 06/06/25 15:13 Oxygen Delivery Method Room Air 06/06/25 15:13 Discharge Plan Plan Patient Disposition: Other Care w/in Hosp ([facility]) Patient condition on transfer: Stable Prescriptions/Referrals Prescriptions/Med Rec: No Action atorvastatin 80 mg tablet 80 mg PO QDAY clotrimazole 1 % cream 1 applic topical BID ferrous sulfate 325 mg (65 mg iron) tablet 325 mg PO QDAY lisinopril 20 mg tablet 20 mg PO QDAY insulin glargine [Lantus U-100 Insulin] 100 U/ML solution 38 unit Sub-Q HS Qty: 0 clopidogrel 75 MG tablet 75 mg PO QDAY Qty: 0 tramadol 50 mg Tablet 50 mg PO QID PRN (Reason: Pain (Scale Score 7-10)) gabapentin 300 mg Capsule 300 mg PO BID oxybutynin chloride 5 mg Tablet 5 mg PO BID cilostazol 100 mg Tablet 100 mg PO BID alendronate 70 mg Tablet 70 mg PO QWEEK calcium carbonate [Calcium 600] 600 mg calcium (1,500 mg) Tablet 600 mg PO BID potassium chloride 20 mEq Tablet Extended Release 20 meq PO QDAY (DME) FreeStyle Tigre 3 Sensor Device See Rx Instructions .Route Qty: 1 0RF Rx Instructions: As directed trazodone 50 mg Tablet 50 mg PO HS glimepiride 4 mg Tablet 4 mg PO QDAY hydralazine 50 mg Tablet 50 mg PO TID Referrals: Brandt Vo MD [Primary Care Provider, Family Practice] - In 1 week Problem List Clinical Impression: Pneumonia, CHF (congestive heart failure), Bilateral edema of lower extremity, Noncompliance with medication regimen Patient/Caregiver Discharge Instructions Print Language: Italian Stand Alone Forms: Kristyn Award Info., Patient Portal Info Letter MARY/THEO Supervising Physician SOBIA Supervising Physician: Grabiel Chowdary ENP [facility] Clinical Information Provided by: patient Medical Records reviewed [facility] Meds/Rx considered, not ordered None Labs/Rad/Tests considered, not ordered None Chronic Illness/Social Conditions Explain: Diabetes hypertension hyperlipidemia aortic valve disease status post TAVR CAD status post PCI peripheral arterial disease CVA. EKG Interpretation EKG #1: EKG Interpretation: EKG performed at 1517 shows a ventricular rate of 76 [place] interval 181 QRS of 108 QTc of 439 this is sinus rhythm nonspecific T wave abnormality. Labs Labs: interpreted by me Lab(s) Interpretation(s): CBC shows a mild leukocytosis 11.4 H&H of 11.2. And 49.9 respectively. Platelets at 181. Coags within acceptable limits Sodium 135 creatinine 1.4 glucose of 380 no other electrolyte imbalances. T. bili of 0.5 AST at 50 ALT at 50 LDH at 3 98. Troponin 0.056 note: Patient has chronic troponin leak. This is the lowest its been in the last does not draws. BNP of 565. Patient's case discussed with attending Dr. Garber, who agrees to except the patient for admission. Imaging Imaging interpretation: interpreted by me Imaging Interpretation(s): Chest x-ray interpreted by radiology shows a right base right middle pneumonia. Medication Administration(s) Medication Administration History Discontinued Medications Furosemide (Furosemide Inj 10 Mg/Ml 4ml Vial) 40 mg IVP X1 ONE Stop: 06/06/25 19:20 Last Admin: 06/06/25 19:34 Dose: 40 mg Documented By: SR Hydralazine HCl (Hydralazine Inj 20 Mg/Ml Vial) 10 mg IVP X1 ONE Stop: 06/06/25 15:21 Last Admin: 06/06/25 17:42 Dose: 10 mg Documented By: EF Ceftriaxone Sodium/Dextrose (Rocephin/D5w 1gm Iv Premix) 1 gm in 50 mls @ 100 mls/hr IV X1 ONE Stop: 06/06/25 16:45 Last Infusion: 06/06/25 18:13 Dose: Infused Documented By: Admin: 06/06/25 17:43 Dose: 100 mls/hr Documented By: BISI
[2025-06-06 15:37] LABS: Basophils # (Auto) 0.0 Thou/mm3 (0.0-0.2); Basophils % (Auto) 0 % (0-2.5); Eosinophils # (Auto) 0.1 Thou/mm3 (0.0-0.5); Eosinophils % (Auto) 1 % (0-10); Hematocrit 34.9 % (36.0-46.0); Hemoglobin 11.2 g/dL (12.0-16.0); Immature Granulocytes Auto 0.10 Thou/mm3 (0.00-0.00); Lymphocytes # (Auto) 0.6 Thou/mm3 (1.0-4.8); Lymphocytes % (Auto) 6 % (10-50); Mean Corpuscular HGB Conc 32.1 g/dl (31.0-37.0); Mean Corpuscular Hemoglobin 30.9 pg (25.0-35.0); Mean Corpuscular Volume 96 fL (80-100); Monocytes # (Auto) 0.9 Thou/mm3 (0.0-0.8); Monocytes % (Auto) 7 % (0-12); Neutrophils # (Auto) 9.7 Thou/mm3 (1.8-7.7); Neutrophils % (Auto) 85 % (37-80); Nucleated Red Blood Cell # 0.00 Thou/mm3 (0.00-0.00); Nucleated Red Blood Cell % 0 /100 WBC (0); Platelet Count 181 Thou/mm3 (140-440); RDW Standard Deviation 52.2 fL (36.4-46.3); Red Blood Count 3.63 Miln/mm3 (4.00-5.20); White Blood Count 11.4 Thou/mm3 (3.6-11.0)
[2025-06-06 16:00] LABS: B-Type Natriuretic Peptide 565 pg/mL (0-100); INR 1.1 (0.9-1.3); Partial Thromboplastin Time 25.1 Seconds (22.0-36.0); Prothrombin Time 11.4 Seconds (9.0-12.2)
[2025-06-06 16:01] LABS: Alanine Aminotransferase 50 U/L (10-49); Albumin, Serum 4.1 gm/dL (3.4-4.8); Albumin/Globulin Ratio 1.4 (1.2-2.2); Alkaline Phosphatase 108 U/L (46-116); Anion Gap 7 (7-16); Aspartate Amino Transferase 50 U/L (0-34); BUN/Creatinine Ratio 13 Ratio (12-20); Bilirubin,Total 0.5 mg/dL (0.3-1.2); Blood Urea Nitrogen 18 mg/dL (9-23); Calcium 8.7 mg/dL (8.3-10.6); Calcium (Corrected) 8.7 mg/dL (8.5-10.1); Carbon Dioxide 23.3 mMol/L (20.0-31.0); Chloride 105 mMol/L (98-107); Creatinine (Component) 1.4 mg/dL (0.6-1.3); Estimated Creatinine Clearance 31.9 mL/min (>60); Globulin 2.9 gm/dL (2.3-3.5); Glucose 380 mg/dL (74-106); LDH (Lactate Dehydrogenase) 398 U/L (120-246); Magnesium 2.0 mg/dL (1.6-2.6); Osmolality,Calculated 288 (275-295); Potassium 4.5 mMol/L (3.4-5.1); Sodium 135 mMol/L (136-145); Total Protein 7.0 gm/dL (5.7-8.2); eGFR 37 See Note
[2025-06-06 16:10] LABS: Troponin I 0.056 ng/mL (0.0-0.045)
[2025-06-06] MEDS: hydrALAZINE INJ 20 MG/ML VIAL 10 MG IVP (17:42)
[2025-06-06 17:43] LABS: Collection Type, Urine Clean Catch; Squamous Epithelial Cell,Urine 0 /hpf (0-5)
[2025-06-06] MEDS: cefTRIAXone/D5w 1gm IV premix 1 GM/50 ML BAG IV (17:43)
[2025-06-06 17:51] LABS: Bilirubin,Urine Negative (Negative); Blood,Urine Negative (Negative); Clarity,Urine Clear (Clear/Hazy); Color,Urine Lt-Yellow (Lt Yel-Yel); Culture Indicated,Urine Not Indicated; Glucose, Urine 3+ (Negative); Hyaline Casts,Urine < 1 /hpf (0-1); Ketones,Urine Negative (Negative); Leukocyte Esterase,Urine Negative (Negative); Nitrite,Urine Negative (Negative); PH,Urine 6.5 (5.0-7.0); Protein,Urine Negative (Neg - Trace); RBC,Urine 5 /hpf (0-3); Specific Gravity,Urine 1.010 (1.001-1.035); Urobilinogen,Urine Negative mg/dL (0.0-1.0); WBC,Urine 1 /hpf (0-5)
[2025-06-06 17:58] LABS: Amphetamine/Methamp Scrn,U Negative (Negative); Barbiturate Screen,Urine Negative (Negative); Benzodiazepines Screen,Urine Negative (Negative); Benzoylecgonine Screen, Ur Negative (Negative); Fentanyl Screen,Urine Negative (Negative); Opiate Screen,Urine Negative (Negative); THC Screen,Urine Negative (Negative)
[2025-06-06] MEDS: FUROSEMIDE INJ 10 MG/ML 4ML VIAL 40 MG IVP (19:34)
--- NOTE | 2025-06-06 22:08 | ECHO_ITS ---
Patient Info Name: Laureen Burger Age: 84 years : 1940 Gender: Female Ht: 163 cm Wt: 84 kg BSA: 1.98 m2 BP: 149 / 77 mmHg HR: 80 bpm Exam Date: 06/07/2025 8:31 AM Admit Date: 06/06/2025 Site: [facility] Room Number: 266 Patient Status: I Technical Quality: Poor Exam Type: CA echo doppler complete Trade Clerk: Tessa Terry Ordering Physician: Kenn Christensen Study Info Indications CHF Exacerbation - Primary Location: [id number] Left Ventricular Outflow Tract Name Value Normal LVOT 2D LVOT Diameter 1.9 cm LVOT Doppler LVOT Peak Velocity 123 cm/s LVOT Mean Gradient 3 mmHg LVOT VTI 24 cm LVOT VTI/AV VTI Ratio 0.5 LVOT Stroke Volume 69 ml Pulmonic Valve Name Value Normal PV Doppler PV Peak Velocity 122 cm/s Mitral Valve Name Value Normal MV Doppler MV Mean Gradient 6 mmHg MV Decel Loving 652 cm/s2 MV PHT 88 ms MV Area (PHT) 2.5 cm2 4.0-5.0 MV Area (Cont Eq VTI) 1.1 cm2 MV Diastolic Function MV E Peak Velocity 197 cm/s MV A Peak Velocity 98 cm/s MV E/A 2.0 Tricuspid Valve Name Value Normal TV Regurgitation Doppler TR Peak Velocity 392 cm/s Estimated PAP/RSVP RA Pressure 3 mmHg <=5 PA Systolic Pressure 64 mmHg <36 RV Systolic Pressure 64 mmHg <36 Aortic Valve Name Value Normal AV 2D/MM AV Cusp Sep (MM) 1.1 cm AV Doppler AV Peak Velocity 254 cm/s AV Mean Gradient 15 mmHg AV VTI 53 cm AV Area (Cont Eq VTI) 1.3 cm2 >=3.0 AV Area (Cont Eq Adriano) 1.4 cm2 AV DI (Adriano) 0.48 AV Regurgitation 2D LVOT Area 2.8 cm2 Ventricles Name Value Normal LV Dimensions 2D/MM IVS Diastolic Thickness (2D) 1.3 cm 0.6-0.9 LVID Diastole (2D) 3.5 cm 3.8-5.2 LVIW Diastolic Thickness (2D) 1.5 cm 0.6-0.9 LVOT Diameter 1.9 cm LV Mass (2D Cubed) 172.97 g 67.00-162.00 LV Mass Index (2D Cubed) 87 g/m2 43-95 Relative Wall Thickness (2D) 0.86 <=0.42 IVS/LVIW Diastolic Thickness (2D) 0.87 0.00-1.50 Atria Name Value Normal LA Dimensions LA Volume (4C A-L) 117 ml LA Volume (BP A-L) 130 ml Left Ventricle Left ventricular chamber dimension is normal. Unable to accurately determine LVEF. There is moderate concentric hypertrophy noted in the left ventricle. Left ventricular segmental wall motion is normal. There is normal diastolic function in the left ventricle. Right Ventricle Right ventricular chamber dimension is normal. Right ventricular systolic function is normal. Left Atrium Left atrial chamber dimension is mildly enlarged. Right Atrium Right atrial chamber dimension is normal. Aortic Valve The aortic valve is trileaflet. There is moderate aortic valve sclerosis. There is no aortic valve stenosis with a peak velocity of 254 cm/s, mean gradient of 15 mmHg, and aortic valve area of 1.3 cm2. There is no aortic valve regurgitation. Pulmonic Valve The pulmonic valve is normal. There is no pulmonic valve stenosis. There is trace pulmonic regurgitation. Mitral Valve The mitral valve has normal leaflets. There is mild mitral valve stenosis. There is mild to moderate mitral valve regurgitation. Tricuspid Valve The tricuspid valve leaflets are normal. There is no tricuspid valve stenosis. There is mild tricuspid valve regurgitation. Severe pulmonary hypertension, estimated pulmonary arterial systolic pressure is 64 mmHg and systemic blood pressure of 149 mmHg in systole. Pericardium/Pleural There is trivial pericardial effusion with no tamponade. Pleural effusion visualized. Inferior Vena Cava Normal inferior vena cava with >50% collapse upon inspiration consistent with normal right atrial pressure, 3 mmHg. Aorta The aortic measurements are indexed to age and body surface area. The aortic root at the sinus of Valsalva is not well visualized. The prox ascending aorta is not well visualized. Summary 1. Left ventricle size is normal and systolic function is normal. Estimated ejection fraction is 55-60%. There is normal diastolic function. There is moderate concentric hypertrophy noted. 2. Right ventricle chamber size is normal and systolic function is normal. Estimated RVSP is 64 mmHg. Severe HTN. 3. There is moderate aortic valve sclerosis. Aortic prosthetic valve mean gradients 15 mmHg, vmax 2.5 m/s. 4. There is mild to moderate mitral valve regurgitation. Moderate MAC. Moderate stenosis, 6 mmHg. 5. There is mild tricuspid valve regurgitation. 6. trace pulmonic valve regurgitation. 7. The left atrium is mildly enlarged. The right atrium is normal. 8. Normal IVC with estimated RA pressure 3 mmHg. 9. There is trivial pericardial effusion with no tamponade. 10. Pleural effusion visualized. Report Signatures Finalized by Kayleigh Sullivan on 06/13/2025 08:10 AM
--- NOTE | 2025-06-06 22:16 | ESHP_ITS ---
<Statement entered by Leonel Garcia MD - 06/11/25 01:34> 84-year-old female with significant past medical history of COPD not on oxygen, insulin-dependent diabetes mellitus, hypertension, HFpEF, CAD s/p CABG [?2023], hyperlipidemia, aortic stenosis s/p TAVR presented to the hospital with chief complaints of shortness of breath since 2 days. Also associated with orthopnea. Sleeps with the head end elevation. Reported that she is compliant with all her medications. Labs at the time of admission significant for WBC 11.4, sodium 135, creatinine 1.4, glucose 380, troponin 0.056, TSH 1.36, free T41.04. Chest x-ray showed enlarged cardiac contour, bilateral prominent vascular congestion with right pleural effusion. Admitted in the hospital for CHF exacerbation. Started on Lasix, continue rest of home medication. Strict intake and output. Will maintain negative fluid balance. I have personally seen and examined the patient, agree with residents assessment and plan Patient plan of care was discussed with the attending physician, Dr. Donna Garcia, PGY2 Documentation for date of: 06/06/25 HPI History of Present Illness History of present illness: HPI: 84-year-old female past medical history of A-fib, COPD, hypertension, coronary artery disease status post triple-vessel bypass in December 2023, diabetes, peripheral artery disease, and hyperlipidemia who presented to the ED on the evening of 06/06/2025 with a 2-day history of shortness of breath and cough. She denied any chest pain. She had been producing some clear sputum. She was found to have prominent vascular congestion and enlargement of the cardiac contour on chest x-ray with a significant pleural effusion in the right base. She was also found to have an elevated troponin. EKG was negative for any acute ST segment changes. Patient was admitted for CHF exacerbation and NSTEMI type II. ED Course: * Significant vitals on arrival: BP 143/72. Other vitals stable. * Significant labs: WBC 11.4, hemoglobin 11.2, creatinine 1.4, glucose 380, AST 50, ALT 50, LDH 398, troponin 0.056, BNP 565. * Imaging: Chest x-ray showed mild heart failure, significant pneumonia right base and right middle lobe. EKG showed sinus rhythm with a rate of 76 QTc of 461 with occasional supraventricular premature complexes. * Urine: 3+ glucose, 5 RBCs, UTOX negative. * ED intervention: Patient received hydralazine 10 mg IV push x 1, 1 g of ceftriaxone, and 40 mg furosemide IV push x 1. History: * Past medical history: A-fib, COPD, hypertension, coronary artery disease status post triple-vessel bypass in December 2023, diabetes, and hyperlipidemia * Surgical history: Triple coronary artery bypass in December 2023 * Family History: Noncontributory * Social history: [id number] smoking history, quit 20 years ago, denies alcohol or illicit drug use. Allergies: * No known drug allergies Home Medications: * Alendronate 70 mg weekly * Atorvastatin 80 mg daily * Calcium carbonate 600 mg twice daily * Cilostazol 100 mg twice daily * Clopidogrel 75 mg daily * Ferrous sulfate 325 mg daily * Gabapentin 300 mg p.o. twice a day * Glimepiride 4 mg p.o. daily * Hydralazine 50 mg p.o. 3 times a day * Insulin glargine 38 units subcu nightly * Lisinopril 20 mg p.o. daily * Oxybutynin 5 mg p.o. twice a day * Potassium chloride 20 mill EQ daily * Tramadol 50 mg p.o. 4 times a day as needed * Trazodone 50 mg p.o. nightly CODE STATUS: Full Code Review of Systems Review of Systems Narrative Review of Systems: Review of Systems: * General: Denies fevers, admits to chills. * HEENT: Denies headache, congestion, or sore throat. * Cardiac: Denies chest pain or palpitations. * Pulmonary: Admits to 2 days of cough productive of clear sputum, admits to 2 days of shortness of breath. * GI: Admits to several episodes of diarrhea the day before presentation. Denies nausea, vomiting, melena, or hematochezia. * : Denies dysuria, hematuria, frequency, or urgency. * MSK: Denies pain in the extremities, joints, or myalgias. * Neuro: Denies weakness, numbness, vision changes, or speech difficulty. Exam Vital Signs Temp Pulse Resp BP Pulse Ox O2 Del Method 98.8 F 88 20 129/71 96 Room Air 06/06/25 20:27 06/06/25 20:27 06/06/25 20:27 06/06/25 20:27 06/06/25 20:27 06/06/25 20:27 Narrative Exam General: Frail elderly lady. Awake and in no acute distress. Conversational and non-toxic appearing. Neurologic: GCS 15. Alert and oriented x3, no gross neurological deficit, and patient able to move all 4 extremities. HEENT: Normocephalic, atraumatic, mucous membranes dry. Heart: Regular rate and rhythm, normal S1 and S2, no murmurs. Lungs: Diffuse crackles bilaterally, reduced breath sounds in the right base. Abdomen: Soft, nondistended, nontender, positive bowel sounds. No guarding or rebound tenderness. Extremities: 2+ pitting edema in feet lower extremities bilaterally up to the thighs. 2+ radial and dorsalis pedis pulses bilaterally. Skin: Warm. Dry. No rash or ecchymoses. Results: Labs 06/10/25 04:55 06/10/25 04:55 Labs: Short CBC 06/06/25 Range/Units 15:31 WBC 11.4 H (3.6-11.0) Thou/mm3 Hgb 11.2 L (12.0-16.0) g/dL Hct 34.9 L (36.0-46.0) % Plt Count 181 (140-440) Thou/mm3 BMP 06/06/25 15:31 Sodium 135 L Potassium 4.5 Chloride 105 Carbon Dioxide 23.3 BUN 18 Creatinine 1.4 H Glucose 380 H Calcium 8.7 Cardiac Enzymes 06/06/25 Range/Units 15:31 Troponin I 0.056 H* (0.0-0.045) ng/mL Liver Function 06/06/25 Range/Units 15:31 Total Bilirubin 0.5 (0.3-1.2) mg/dL AST 50 H (0-34) U/L ALT 50 H (10-49) U/L Alkaline Phosphatase 108 (46-116) U/L Albumin 4.1 (3.4-4.8) gm/dL Urine 06/06/25 Range/Units 17:36 Urine Color Lt-Yellow (Lt Yel-Yel) Urine Clarity Clear (Clear/Hazy) Urine pH 6.5 (5.0-7.0) Ur Specific [place] 1.010 (1.001-1.035) Urine Protein Negative (Neg - Trace) Urine Glucose (UA) 3+ A (Negative) Quality Measures Quality Measures VTE prophylaxis Advance care planning discussed with:: patient and child Medications Home Medications and Allergies Home Medications ?Medication ?Instructions ?Recorded ?Confirmed ?Type clopidogrel 75 mg tablet 75 mg PO QDAY Blood Thinner ##0 07/05/13 06/07/25 History insulin glargine 100 unit/mL 38 unit subcut HS Diabete s #0 vials 07/05/13 06/07/25 History subcutaneous solution (Lantus U-100 Insulin) gabapentin 300 mg capsule 300 mg PO BID 01/11/2106/07 History oxybutynin chloride 5 mg tablet 5 mg PO BID 01/11/21 1 08/08/24 History tramadol 50 mg tablet 50 mg PO QID PRN Pain (Scale Score 01/11/21 06/07/25 History 7-10) glimepiride 4 mg tablet 4 mg PO QDAY 10/27/23 History hydralazine 50 mg tablet 50 mg PO TID 10/27/23 History Held on 06/10/25. Instructions: Resume on 06/10/25. Discuss with your doctor prior to resuming this medication trazodone 50 mg tablet 50 mg PO HS 10/27/23 5 History alendronate 70 mg tablet 70 mg PO QWEEK 11/21/2311/25 History calcium carbonate (Calcium 600) 600 mg PO BID 11/21/23 06/07/25 History cilostazol 100 mg tablet 100 mg PO BID 11/21/2306/07 History potassium chloride 20 mEq 20 meq PO QDAY 11/21/2311/25 History tablet,extended release Held on 06/10/25. Instructions: Resume on 06/10/25. Discuss with your doctor prior to resuming this medication atorvastatin 80 mg tablet 80 mg PO .PM 12/25/24 History clotrimazole 1 % topical cream 1 applic topical BID 06/07/25 History ferrous sulfate 325 mg (65 mg 325 mg PO QDAY 12/25/24 06/07/25 History iron) tablet lisinopril 20 mg tablet 20 mg PO QDAY 12/25/2406/07 History amiodarone 200 mg tablet 200 mg PO DAILY 06/07/2511/25 History aspirin 81 mg tablet,delayed 81 mg PO QDAY 06/07/25 History release (Mannie Low Dose Aspirin) folic acid 1 mg tablet 1 mg PO QDAY 06/07/25 History ketoconazole 2 % topical cream 1 applic topical BID 06/07/25 History promethazine-DM 6.25 mg-15 mg/5 mL 5 ml PO QID PRN cou gh 06/07/25 06/07/25 History oral syrup Allergies Allergy/AdvReac Type Severity Reaction Status Date / Time No Known Allergies Allergy Verified 06/06/25 15:29 Visit Medications Acetaminophen (Acetaminophen 325 Mg Tablet) 650 mg PO Q6H PRN PRN Reason: Fever >100.4 Stop: 07/06/25 22:03 Amiodarone HCl (Amiodarone Hcl 200 Mg Tablet) 200 mg PO DAILY FARHAT Stop: 07/07/25 08:59 Aspirin (Aspirin Ec 81 Mg Tabec) 81 mg PO DAILY FARHAT Stop: 07/07/25 08:59 Atorvastatin Calcium (Atorvastatin Calcium 10 Mg Tablet) 80 mg PO DAILY FARHAT Stop: 07/07/25 08:59 Cilostazol (Cilostazol 50 Mg Tablet) 100 mg PO BID FARHAT Stop: 07/07/25 08:59 Clopidogrel Bisulfate (Clopidogrel Bisulfate 75 Mg Tablet) 75 mg PO DAILY FARHAT Stop: 07/07/25 08:59 Enoxaparin Sodium (Enoxaparin Sod Inj 40 Mg/0.4 Ml Syringe) 40 mg SC QDAY FARHAT Stop: 06/21/25 08:59 Furosemide (Furosemide Inj 10 Mg/Ml 4ml Vial) 40 mg IVP BID FARHAT Stop: 07/07/25 08:59 Hydralazine HCl (Hydralazine Hcl 10 Mg Tablet) 50 mg PO TID FARHAT Stop: 07/07/25 05:59 Lisinopril (Lisinopril 20 Mg Tablet) 20 mg PO DAILY FARHAT Stop: 07/07/25 08:59 Ondansetron HCl (Ondansetron Inj 2 Mg/Ml Inj 2 Ml) 4 mg IVP Q6H PRN; Protocol PRN Reason: NAUSEA OR VOMITING Stop: 07/06/25 22:03 Pantoprazole Sodium (Pantoprazole Inj 40 Mg Vial) 40 mg IVP Q12HR FARHAT Stop: 07/07/25 08:59 Discontinued Medications Furosemide (Furosemide Inj 10 Mg/Ml 4ml Vial) 40 mg IVP X1 ONE Stop: 06/06/25 19:20 Last Admin: 06/06/25 19:34 Dose: 40 mg Hydralazine HCl (Hydralazine Inj 20 Mg/Ml Vial) 10 mg IVP X1 ONE Stop: 06/06/25 15:21 Last Admin: 06/06/25 17:42 Dose: 10 mg Ceftriaxone Sodium/Dextrose (Rocephin/D5w 1gm Iv Premix) 1 gm in 50 mls @ 100 mls/hr IV X1 ONE Stop: 06/06/25 16:45 Last Infusion: 06/06/25 18:13 Dose: Infused Assessment & Plan Plan Summary: 84-year-old female past medical history of A-fib, COPD, hypertension, coronary artery disease status post triple-vessel bypass in December 2023, diabetes, peripheral artery disease, and hyperlipidemia who presented to the ED on the evening of 06/06/2025 with a 2-day history of shortness of breath and cough. She was found to have prominent vascular congestion and enlargement of the cardiac contour on chest x-ray with a significant pleural effusion in the right base. She was also found to have an elevated troponin. Patient was admitted for CHF exacerbation and NSTEMI type II. #Acute on chronic hypoxic respiratory failure #Acute on chronic CHF Exacerbation * Patient presented with 2-day history of shortness of breath * Chest x-ray showed prominent vascular congestion enlargement cardiac contour, there was a significant right sided pneumonia versus pleural effusion with blunting of the costophrenic angle, Sunny B lines * Patient had significant pitting edema in her lower extremities bilaterally * Patient had diffuse crackles heard on auscultation * Echocardiogram 10/26/2023 showed normal LV size, moderate left ventricular hypertrophy, hyperdynamic function, estimated ejection fraction 70-75%, estimated RVSP 32 mmHg. * BNP 565, may be secondary to CKD * That the patient had a previous echo that showed a normal ejection fraction, consider new onset heart failure due to remodeling from ischemic heart disease * Also consider changes in diet versus medication noncompliance that may have led to CHF exacerbation Plan: * Lasix 40 mg IV push twice daily * Strict ins and outs * Fluid restriction 1500 mL * Trend urine output, aj in place * Echo ordered * Cardiology consulted #NSTEMI type II * Patient presented with a Trope of 0.056 * EKG showed no evidence of acute ST segment changes * Patient has had troponin leakage in the past Plan: * Will trend troponins #A-Fib? * Per patient history * EKG had sinus rhythm * Patient is not on anticoagulation Plan: * Restarted home amiodarone 200 mg daily #COPD * Per patient history, [id number] smoking history * Less concern for COPD exacerbation at this time as the patient's 2-day history of dyspnea is likely secondary to CHF exacerbation * Patient is a mild WBC count of 11, afebrile * Patient received 1 g ceftriaxone in the ED * Patient does not use home oxygen Plan: * Will not continue antibiotics inpatient * Oxygen PRN #LINDY on CKD * Patient presented with a creatinine of 1.4 BUN of 18,, last creatinine in May 2025 was 1.6 and BUN 36 * Patient follows Dr Hayes Plan: * No direct intervention at this time #Hypertension Stage II * Per patient history * Patient presented with a blood pressure 143/72 Plan: * Restarted home lisinopril 20 mg daily * Restarted home hydralazine 50 mg p.o. 3 times a day #Coronary artery disease status post triple vessel bypass * Triple-vessel bypass procedure was in December 2023 Plan: * Restarted home aspirin 81 mg daily * Restarted home clopidogrel 75 mg daily #Insulin-dependent diabetes * Patient presented with glucose 380 * Patient takes 38 units of glargine subcu nightly Plan: * Degludec 24 units daily * Insulin sliding scale * Carb consistent diet #Peripheral Artery Disease * Patient's son mentions that the patient is having a balloon angioplasty procedure at the end of the month with Dr. Sullivan Plan: * Restarted home cilostazol 100 mg once a day #Hyperlipidemia * Per patient history Plan: * Restarted home atorvastatin 80 mg daily Hospital Maintenance: DVT ppx: Lovenox 40 mg subcu daily Diet: Carb consistent IV lines: Peripheral IVs Aj: In place Code status: Full code Dispo: Telemetry monitoring floor, diuresing for CHF exacerbation, trending troponins. Restarted home meds. Patient was seen and discussed with my attending physician Dr. Donna MERCEDES and my senior resident Dr. Radha MERCEDES PGY-2. Kenn Christensen DO PGY-1. Attending Provider Attestation/Addendum After examination of the patient and review of the clinical data I feel that this patient needs admission to the hospital for further treatment/evaluation. Plan of care discussed with patient and is in agreement. I Marco Antonio Thompson MD, attest that I was physically present for lowe portions of evaluation, and examined patient, labs and imagings and plan of care were discussed with IM residents team, and I agree with the findings and plans documented above.
--- NOTE | 2025-06-06 22:16 | PD.RESHP ---
Documentation for date of: 06/06/25 HPI History of Present Illness History of present illness: HPI: 84-year-old female past medical history of A-fib, COPD, hypertension, coronary artery disease status post triple-vessel bypass in December 2023, diabetes, peripheral artery disease, and hyperlipidemia who presented to the ED on the evening of 06/06/2025 with a 2-day history of shortness of breath and cough. She denied any chest pain. She had been producing some clear sputum. She was found to have prominent vascular congestion and enlargement of the cardiac contour on chest x-ray with a significant pleural effusion in the right base. She was also found to have an elevated troponin. EKG was negative for any acute ST segment changes. Patient was admitted for CHF exacerbation and NSTEMI type II. ED Course: Significant vitals on arrival: BP 143/72. Other vitals stable. Significant labs: WBC 11.4, hemoglobin 11.2, creatinine 1.4, glucose 380, AST 50, ALT 50, LDH 398, troponin 0.056, BNP 565. Imaging: Chest x-ray showed mild heart failure, significant pneumonia right base and right middle lobe. EKG showed sinus rhythm with a rate of 76 QTc of 461 with occasional supraventricular premature complexes. Urine: 3+ glucose, 5 RBCs, UTOX negative. ED intervention: Patient received hydralazine 10 mg IV push x 1, 1 g of ceftriaxone, and 40 mg furosemide IV push x 1. History: Past medical history: A-fib, COPD, hypertension, coronary artery disease status post triple-vessel bypass in December 2023, diabetes, and hyperlipidemia Surgical history: Triple coronary artery bypass in December 2023 Family History: Noncontributory Social history: [id number] smoking history, quit 20 years ago, denies alcohol or illicit drug use. Allergies: No known drug allergies Home Medications: Alendronate 70 mg weekly Atorvastatin 80 mg daily Calcium carbonate 600 mg twice daily Cilostazol 100 mg twice daily Clopidogrel 75 mg daily Ferrous sulfate 325 mg daily Gabapentin 300 mg p.o. twice a day Glimepiride 4 mg p.o. daily Hydralazine 50 mg p.o. 3 times a day Insulin glargine 38 units subcu nightly Lisinopril 20 mg p.o. daily Oxybutynin 5 mg p.o. twice a day Potassium chloride 20 mill EQ daily Tramadol 50 mg p.o. 4 times a day as needed Trazodone 50 mg p.o. nightly CODE STATUS: Full Code Review of Systems Review of Systems Narrative Review of Systems: Review of Systems: General: Denies fevers, admits to chills. HEENT: Denies headache, congestion, or sore throat. Cardiac: Denies chest pain or palpitations. Pulmonary: Admits to 2 days of cough productive of clear sputum, admits to 2 days of shortness of breath. GI: Admits to several episodes of diarrhea the day before presentation. Denies nausea, vomiting, melena, or hematochezia. : Denies dysuria, hematuria, frequency, or urgency. MSK: Denies pain in the extremities, joints, or myalgias. Neuro: Denies weakness, numbness, vision changes, or speech difficulty. Exam Vital Signs Temp Pulse Resp BP Pulse Ox O2 Del Method 98.8 F 88 20 129/71 96 Room Air 06/06/25 20:27 06/06/25 20:27 06/06/25 20:27 06/06/25 20:27 06/06/25 20:27 06/06/25 20:27 Narrative Exam General: Frail elderly lady. Awake and in no acute distress. Conversational and non-toxic appearing. Neurologic: GCS 15. Alert and oriented x3, no gross neurological deficit, and patient able to move all 4 extremities. HEENT: Normocephalic, atraumatic, mucous membranes dry. Heart: Regular rate and rhythm, normal S1 and S2, no murmurs. Lungs: Diffuse crackles bilaterally, reduced breath sounds in the right base. Abdomen: Soft, nondistended, nontender, positive bowel sounds. No guarding or rebound tenderness. Extremities: 2+ pitting edema in feet lower extremities bilaterally up to the thighs. 2+ radial and dorsalis pedis pulses bilaterally. Skin: Warm. Dry. No rash or ecchymoses. Results: Labs 06/10/25 04:55 06/10/25 04:55 Labs: Short CBC 06/06/25 Range/Units 15:31 WBC 11.4 H (3.6-11.0) Thou/mm3 Hgb 11.2 L (12.0-16.0) g/dL Hct 34.9 L (36.0-46.0) % Plt Count 181 (140-440) Thou/mm3 BMP 06/06/25 15:31 Sodium 135 L Potassium 4.5 Chloride 105 Carbon Dioxide 23.3 BUN 18 Creatinine 1.4 H Glucose 380 H Calcium 8.7 Cardiac Enzymes 06/06/25 Range/Units 15:31 Troponin I 0.056 H* (0.0-0.045) ng/mL Liver Function 06/06/25 Range/Units 15:31 Total Bilirubin 0.5 (0.3-1.2) mg/dL AST 50 H (0-34) U/L ALT 50 H (10-49) U/L Alkaline Phosphatase 108 (46-116) U/L Albumin 4.1 (3.4-4.8) gm/dL Urine 06/06/25 Range/Units 17:36 Urine Color Lt-Yellow (Lt Yel-Yel) Urine Clarity Clear (Clear/Hazy) Urine pH 6.5 (5.0-7.0) Ur Specific [place] 1.010 (1.001-1.035) Urine Protein Negative (Neg - Trace) Urine Glucose (UA) 3+ A (Negative) Quality Measures Quality Measures VTE prophylaxis Advance care planning discussed with:: patient and child Medications Home Medications and Allergies Home Medications ?Medication ?Instructions ?Recorded ?Confirmed ?Type clopidogrel 75 mg tablet 75 mg PO QDAY Blood Thinner ##0 07/05/13 06/07/25 History insulin glargine 100 unit/mL 38 unit subcut HS Diabetes #0 vials 07/05/13 06/07/25 History subcutaneous solution (Lantus U-100 Insulin) gabapentin 300 mg capsule 300 mg PO BID 01/11/21 06/07/25 History oxybutynin chloride 5 mg tablet 5 mg PO BID 01/11/21 06/07/25 History tramadol 50 mg tablet 50 mg PO QID PRN Pain (Scale Score 01/11/21 06/07/25 History 7-10) glimepiride 4 mg tablet 4 mg PO QDAY 10/27/23 06/07/25 History hydralazine 50 mg tablet 50 mg PO TID 10/27/23 06/07/25 History Held on 06/10/25. Instructions: Resume on 06/10/25. Discuss with your doctor prior to resuming this medication trazodone 50 mg tablet 50 mg PO HS 10/27/23 06/07/25 History alendronate 70 mg tablet 70 mg PO QWEEK 11/21/23 06/07/25 History calcium carbonate (Calcium 600) 600 mg PO BID 11/21/23 06/07/25 History cilostazol 100 mg tablet 100 mg PO BID 11/21/23 06/07/25 History potassium chloride 20 mEq 20 meq PO QDAY 11/21/23 06/07/25 History tablet,extended release Held on 06/10/25. Instructions: Resume on 06/10/25. Discuss with your doctor prior to resuming this medication atorvastatin 80 mg tablet 80 mg PO .PM 12/25/24 06/07/25 History clotrimazole 1 % topical cream 1 applic topical BID 12/25/24 06/07/25 History ferrous sulfate 325 mg (65 mg 325 mg PO QDAY 12/25/24 06/07/25 History iron) tablet lisinopril 20 mg tablet 20 mg PO QDAY 12/25/24 06/07/25 History amiodarone 200 mg tablet 200 mg PO DAILY 06/07/25 06/07/25 History aspirin 81 mg tablet,delayed 81 mg PO QDAY 06/07/25 06/07/25 History release (Mannie Low Dose Aspirin) folic acid 1 mg tablet 1 mg PO QDAY 06/07/25 06/07/25 History ketoconazole 2 % topical cream 1 applic topical BID 06/07/25 06/07/25 History promethazine-DM 6.25 mg-15 mg/5 mL 5 ml PO QID PRN cough 06/07/25 06/07/25 History oral syrup Allergies Allergy/AdvReac Type Severity Reaction Status Date / Time No Known Allergies Allergy Verified 06/06/25 15:29 Visit Medications Acetaminophen (Acetaminophen 325 Mg Tablet) 650 mg PO Q6H PRN PRN Reason: Fever >100.4 Stop: 07/06/25 22:03 Amiodarone HCl (Amiodarone Hcl 200 Mg Tablet) 200 mg PO DAILY [facility] Stop: 07/07/25 08:59 Aspirin (Aspirin Ec 81 Mg Tabec) 81 mg PO DAILY [facility] Stop: 07/07/25 08:59 Atorvastatin Calcium (Atorvastatin Calcium 10 Mg Tablet) 80 mg PO DAILY [facility] Stop: 07/07/25 08:59 Cilostazol (Cilostazol 50 Mg Tablet) 100 mg PO BID [facility] Stop: 07/07/25 08:59 Clopidogrel Bisulfate (Clopidogrel Bisulfate 75 Mg Tablet) 75 mg PO DAILY [facility] Stop: 07/07/25 08:59 Enoxaparin Sodium (Enoxaparin Sod Inj 40 Mg/0.4 Ml Syringe) 40 mg SC QDAY [facility] Stop: 06/21/25 08:59 Furosemide (Furosemide Inj 10 Mg/Ml 4ml Vial) 40 mg IVP BID [facility] Stop: 07/07/25 08:59 Hydralazine HCl (Hydralazine Hcl 10 Mg Tablet) 50 mg PO TID [facility] Stop: 07/07/25 05:59 Lisinopril (Lisinopril 20 Mg Tablet) 20 mg PO DAILY [facility] Stop: 07/07/25 08:59 Ondansetron HCl (Ondansetron Inj 2 Mg/Ml Inj 2 Ml) 4 mg IVP Q6H PRN; Protocol PRN Reason: NAUSEA OR VOMITING Stop: 07/06/25 22:03 Pantoprazole Sodium (Pantoprazole Inj 40 Mg Vial) 40 mg IVP Q12HR [facility] Stop: 07/07/25 08:59 Discontinued Medications Furosemide (Furosemide Inj 10 Mg/Ml 4ml Vial) 40 mg IVP X1 ONE Stop: 06/06/25 19:20 Last Admin: 06/06/25 19:34 Dose: 40 mg Hydralazine HCl (Hydralazine Inj 20 Mg/Ml Vial) 10 mg IVP X1 ONE Stop: 06/06/25 15:21 Last Admin: 06/06/25 17:42 Dose: 10 mg Ceftriaxone Sodium/Dextrose (Rocephin/D5w 1gm Iv Premix) 1 gm in 50 mls @ 100 mls/hr IV X1 ONE Stop: 06/06/25 16:45 Last Infusion: 06/06/25 18:13 Dose: Infused Assessment & Plan Plan Summary: 84-year-old female past medical history of A-fib, COPD, hypertension, coronary artery disease status post triple-vessel bypass in December 2023, diabetes, peripheral artery disease, and hyperlipidemia who presented to the ED on the evening of 06/06/2025 with a 2-day history of shortness of breath and cough. She was found to have prominent vascular congestion and enlargement of the cardiac contour on chest x-ray with a significant pleural effusion in the right base. She was also found to have an elevated troponin. Patient was admitted for CHF exacerbation and NSTEMI type II. #Acute on chronic hypoxic respiratory failure #Acute on chronic CHF Exacerbation Patient presented with 2-day history of shortness of breath Chest x-ray showed prominent vascular congestion enlargement cardiac contour, there was a significant right sided pneumonia versus pleural effusion with blunting of the costophrenic angle, Sunny B lines Patient had significant pitting edema in her lower extremities bilaterally Patient had diffuse crackles heard on auscultation Echocardiogram 10/26/2023 showed normal LV size, moderate left ventricular hypertrophy, hyperdynamic function, estimated ejection fraction 70-75%, estimated RVSP 32 mmHg. BNP 565, may be secondary to CKD That the patient had a previous echo that showed a normal ejection fraction, consider new onset heart failure due to remodeling from ischemic heart disease Also consider changes in diet versus medication noncompliance that may have led to CHF exacerbation Plan: Lasix 40 mg IV push twice daily Strict ins and outs Fluid restriction 1500 mL Trend urine output, aj in place Echo ordered Cardiology consulted #NSTEMI type II Patient presented with a [place] of 0.056 EKG showed no evidence of acute ST segment changes Patient has had troponin leakage in the past Plan: Will trend troponins #A-Fib? Per patient history EKG had sinus rhythm Patient is not on anticoagulation Plan: Restarted home amiodarone 200 mg daily #COPD Per patient history, [id number] smoking history Less concern for COPD exacerbation at this time as the patient's 2-day history of dyspnea is likely secondary to CHF exacerbation Patient is a mild WBC count of 11, afebrile Patient received 1 g ceftriaxone in the ED Patient does not use home oxygen Plan: Will not continue antibiotics inpatient Oxygen PRN #LINDY on CKD Patient presented with a creatinine of 1.4 BUN of 18,, last creatinine in May 2025 was 1.6 and BUN [address] Hayes Plan: No direct intervention at this time #Hypertension Stage II Per patient history Patient presented with a blood pressure 143/72 Plan: Restarted home lisinopril 20 mg daily Restarted home hydralazine 50 mg p.o. 3 times a day #Coronary artery disease status post triple vessel bypass Triple-vessel bypass procedure was in December 2023 Plan: Restarted home aspirin 81 mg daily Restarted home clopidogrel 75 mg daily #Insulin-dependent diabetes Patient presented with glucose 380 Patient takes 38 units of glargine subcu nightly Plan: Degludec 24 units daily Insulin sliding scale Carb consistent diet #Peripheral Artery Disease Patient's son mentions that the patient is having a balloon angioplasty procedure at the end of the month with Dr. Sullivan Plan: Restarted home cilostazol 100 mg once a day #Hyperlipidemia Per patient history Plan: Restarted home atorvastatin 80 mg daily Hospital Maintenance: DVT ppx: Lovenox 40 mg subcu daily Diet: Carb consistent IV lines: Peripheral IVs Aj: In place Code status: Full code Dispo: Telemetry monitoring floor, diuresing for CHF exacerbation, trending troponins. Restarted home meds. Patient was seen and discussed with my attending physician Dr. Donna MERCEDES and my senior resident Dr. Radha MERCEDES PGY-2. Kenn Christensen DO PGY-1. Attending Provider Attestation/Addendum After examination of the patient and review of the clinical data I feel that this patient needs admission to the hospital for further treatment/evaluation. Plan of care discussed with patient and is in agreement. I Marco Antonio Thompson MD, attest that I was physically present for lowe portions of evaluation, and examined patient, labs and imagings and plan of care were discussed with IM residents team, and I agree with the findings and plans documented above.
[2025-06-06 23:40] LABS: Troponin I 0.066 ng/mL (0.0-0.045)
[2025-06-07] VITALS (12 sets, daily range): BP systolic 105–149; BP diastolic 57–82; PULSE 64–92; RESP 15–22; TEMP 36.6–37.3; O2SAT 92–96; BMI 32.9; BMI 13.0
[2025-06-07 00:06] LABS: COVID-19 Antigen (In-House) Negative (Negative)
[2025-06-07 00:12] LABS: Thyroid Stimulating Hormone 11.36 uIU/mL (0.55-4.78)
[2025-06-07 00:52] LABS: Free T4 (Free Thyroxine) 1.04 ng/dL (0.89-1.76)
[2025-06-07] MEDS: PROMETHAZINE/DM SYRUP 5 ML DOSE PO ×3 (04:50→20:33)
[2025-06-07 05:41] LABS: Basophils # (Auto) 0.0 Thou/mm3 (0.0-0.2); Basophils % (Auto) 0 % (0-2.5); Eosinophils # (Auto) 0.3 Thou/mm3 (0.0-0.5); Eosinophils % (Auto) 3 % (0-10); Hematocrit 31.7 % (36.0-46.0); Hemoglobin 10.2 g/dL (12.0-16.0); Immature Granulocytes Auto 0.10 Thou/mm3 (0.00-0.00); Lymphocytes # (Auto) 0.8 Thou/mm3 (1.0-4.8); Lymphocytes % (Auto) 7 % (10-50); Mean Corpuscular HGB Conc 32.2 g/dl (31.0-37.0); Mean Corpuscular Hemoglobin 30.3 pg (25.0-35.0); Mean Corpuscular Volume 94 fL (80-100); Monocytes # (Auto) 1.0 Thou/mm3 (0.0-0.8); Monocytes % (Auto) 9 % (0-12); Neutrophils # (Auto) 8.4 Thou/mm3 (1.8-7.7); Neutrophils % (Auto) 79 % (37-80); Nucleated Red Blood Cell # 0.00 Thou/mm3 (0.00-0.00); Nucleated Red Blood Cell % 0 /100 WBC (0); Platelet Count 207 Thou/mm3 (140-440); RDW Standard Deviation 50.6 fL (36.4-46.3); Red Blood Count 3.37 Miln/mm3 (4.00-5.20); White Blood Count 10.6 Thou/mm3 (3.6-11.0)
[2025-06-07 06:10] LABS: Alanine Aminotransferase 48 U/L (10-49); Albumin, Serum 3.8 gm/dL (3.4-4.8); Albumin/Globulin Ratio 1.5 (1.2-2.2); Alkaline Phosphatase 96 U/L (46-116); Anion Gap 7 (7-16); Aspartate Amino Transferase 43 U/L (0-34); BUN/Creatinine Ratio 18 Ratio (12-20); Bilirubin,Total 0.5 mg/dL (0.3-1.2); Blood Urea Nitrogen 22 mg/dL (9-23); Calcium 8.3 mg/dL (8.3-10.6); Calcium (Corrected) 8.5 mg/dL (8.5-10.1); Carbon Dioxide 26.7 mMol/L (20.0-31.0); Chloride 108 mMol/L (98-107); Creatinine (Component) 1.2 mg/dL (0.6-1.3); Estimated Creatinine Clearance 37.9 mL/min (>60); Globulin 2.6 gm/dL (2.3-3.5); Glucose 148 mg/dL (74-106); Magnesium 2.0 mg/dL (1.6-2.6); Osmolality,Calculated 289 (275-295); Potassium 4.1 mMol/L (3.4-5.1); Sodium 142 mMol/L (136-145); Total Protein 6.4 gm/dL (5.7-8.2); eGFR 45 See Note
[2025-06-07 06:15] LABS: Troponin I 0.059 ng/mL (0.0-0.045)
[2025-06-07 06:29] LABS: Ferritin 249 ng/mL (7.3-270.7); Iron 24 mcg/dL (50-170); Percent Iron Saturation 13 % (20-55); Total Iron Binding Capacity 181 mcg/dL (250-425); Unsaturated Iron Binding 157 (225-295)
[2025-06-07] MEDS: AMIODARONE HCL 200 MG TABLET PO (08:27)
[2025-06-07] MEDS: PANTOPRAZOLE 40 MG TABLET PO (08:28)
[2025-06-07] MEDS: GABAPENTIN 300 MG CAPSULE PO ×2 (08:28→20:35)
[2025-06-07] MEDS: CLOPIDOGREL BISULFATE 75 MG TABLET PO (08:28)
[2025-06-07] MEDS: ASPIRIN EC 81 MG TABEC PO (08:28)
[2025-06-07] MEDS: OXYBUTYNIN CHLOR 5 MG TABLET PO ×2 (08:28→20:35)
[2025-06-07] MEDS: FUROSEMIDE INJ 10 MG/ML 4ML VIAL 40 MG IVP ×2 (08:29→20:35)
[2025-06-07] MEDS: HEPARIN SOD INJ 5000 UNIT/ML VIAL SC ×2 (08:29→20:35)
[2025-06-07] MEDS: INSULIN DEGLUDEC 5 UNIT/0.05 ML (PER 5 UNITS) 24 UNIT SC (08:30)
--- NOTE | 2025-06-07 09:05 | EKG_ITS ---
[facility] Test Date: 2025-06-07 Pat Name: MALLIKA HADDAD [facility] [employer] Interviewer: MELISSA : 1940 Requested By: Rajendra Chamberlain Order Number: [id number] Reading MD: Rajendra Chamberlain Measurements Intervals [place] Rate: 84 P: 28 TX: 169 QRS: 32 QRSD: 112 T: 32 QT: 394 QTc: 466 Interpretive Statements SINUS RHYTHM WITH OCCASIONAL SUPRAVENTRICULAR PREMATURE COMPLEXES SEPTAL MYOCARDIAL INFARCTION , OF INDETERMINATE AGE LATERAL MYOCARDIAL INFARCTION , OF INDETERMINATE AGE INFERIOR MYOCARDIAL INFARCTION , PROBABLY OLD Compared to ECG 06/06/2025 15:17:14 Myocardial infarct finding now present Left anterior fascicular block no longer present T-wave abnormality no longer present /store/S0/[id number].pdf
--- NOTE | 2025-06-07 11:23 | PC.NURSE ---
Called MD for pain, per pt takes tramadol at home. MD notified
--- NOTE | 2025-06-07 13:58 | ESPR_ITS ---
<Statement entered by Gloria Benoit MD - 06/17/25 09:19> I reviewed above note and agree with findings and plans. I have also personally examined the patient with medicine team and went over assessment and plan with medical team including news department intern and resident physician. <Statement entered by Jackie Mancilla MD - 06/08/25 09:57> In summary: An 84-year-old woman with multiple comorbidities, including HFpEF, COPD, diabetes, and coronary artery disease s/p triple-vessel bypass, was admitted for acute exacerbation of HFpEF causing hypoxic respiratory failure. She showed improvement with diuresis and was started on supplemental oxygen. She also had a likely NSTEMI with stable troponin levels and a rate-controlled atrial fibrillation. COPD exacerbation was less likely, but respiratory support was provided as needed. Her kidney function is being monitored due to acute kidney injury (likely pre- renal congestion), and her diabetes is managed with insulin. Her medications for hypertension, peripheral artery disease, and hyperlipidemia were restarted. I?ve reviewed the note and agree with this assessment and plan, with the exceptions outlined above. I personally went over the labs, imaging, home medications, and prior records, and examined the patient. The case was also reviewed with the attending physician. Please note: this document was transcribed using voice recognition technology; minor inaccuracies may be present. Jackie Mancilla DO PGY II Documentation for date of: 06/07/25 Subjective Subjective Interval history: Patient was seen at the bedside this morning. Patient has a productive cough with bilateral crackles on auscultation. Patient is on 3L of NC and not in any respiratory distress. A physical therapy referral has been ordered. Will continue IV furosemide 40 mg BID since patient is responding well. Will also continue ceftriaxone for the treatment of pneumonia. Exam Vital Signs Temp Pulse Resp BP Pulse Ox O2 Del Method O2 Flow Rate 97.9 F 90 18 105/78 93 L Nasal Cannula 3 06/07/25 12:00 06/07/25 12:00 06/07/25 12:00 06/07/25 12:00 06/07/25 12:00 06/07/25 12:00 06/07/25 12:00 Narrative Exam Physical Exam General: Awake and in no acute distress. Conversational and non-toxic appearing. NC 3L. HEENT: Normocephalic, atraumatic, mucous membranes dry. Heart: Regular rate and rhythm, no murmurs. Symmetric chest rise, no use of accessory muscles. O2 sat 93%. Lungs: Diffuse crackles bilaterally. Abdomen: Soft, nondistended, nontender. No guarding or rebound tenderness. Neurologic: Alert and oriented x3, no gross neurological deficit, and patient able to move all 4 extremities. Extremities: 2+ pitting edema in feet lower extremities bilaterally up to the thighs. 2+ radial and dorsalis pedis pulses bilate Skin: No rash or ecchymoses. Psychiatric: Cooperative, appropriate mood and affect Objective Labs 06/07/25 05:30 06/07/25 05:30 Labs: Laboratory Results - last 24 hr 06/06/25 06/06/25 06/06/25 15:31 17:36 23:00 WBC 11.4 H RBC 3.63 L Hgb 11.2 L Hct 34.9 L MCV 96 MCH 30.9 MCHC 32.1 RDW Std Deviation 52.2 H Plt Count 181 Neut % (Auto) 85 H Lymph % (Auto) 6 L [place] % (Auto) 7 Eos % (Auto) 1 Baso % (Auto) 0 Neut # (Auto) 9.7 H Lymph # (Auto) 0.6 L [place] # (Auto) 0.9 H Eos # (Auto) 0.1 Baso # (Auto) 0.0 Immature Gran # (Auto) 0.10 H Absolute Nucleated RBC 0.00 Immature Gran % 1 H Nucleated RBC % 0 PT 11.4 INR 1.1 APTT 25.1 Sodium 135 L Potassium 4.5 Chloride 105 Carbon Dioxide 23.3 Anion Gap 7 BUN 18 Creatinine 1.4 H Estim Creat Clear Calc 31.9 L eGFR 37 L BUN/Creatinine Ratio 13 Glucose 380 H Calculated Osmolality 288 Calcium 8.7 Corrected Calcium 8.7 Magnesium 2.0 Iron TIBC Iron Saturation Unsat Iron Binding Ferritin Total Bilirubin 0.5 AST 50 H ALT 50 H Alkaline Phosphatase 108 Lactate Dehydrogenase 398 H Troponin I 0.056 H* 0.066 H* B-Natriuretic Peptide 565 H* Total Protein 7.0 Albumin 4.1 Globulin 2.9 Albumin/Globulin Ratio 1.4 TSH 11.36 H Free T4 1.04 Ur Collection Type Clean Catch Urine Color Lt-Yellow Urine Clarity Clear Urine pH 6.5 Ur Specific [place] 1.010 Urine Protein Negative Urine Glucose (UA) 3+ A Urine Ketones Negative Urine Blood Negative Urine Nitrite Negative Urine Bilirubin Negative Urine Urobilinogen (Auto) Negative Ur Leukocyte Esterase Negative Urine RBC 5 H Urine WBC 1 Ur Squamous Epith Cells 0 Urine Bacteria None Hyaline Casts < 1 Ur Culture Indicated? Not Indicated Urine Opiates Screen Negative Urine Fentanyl Screen Negative Ur Barbiturates Screen Negative U Amphetamin/Meth Scrn Negative U Benzodiazepines Scrn Negative U Cocaine Metab Screen Negative U Marijuana (THC) Screen Negative SARS-CoV-2 Ag (Rapid) 06/06/25 06/07/25 06/07/25 23:39 05:30 05:30 WBC 10.6 RBC 3.37 L Hgb 10.2 L Hct 31.7 L MCV 94 MCH 30.3 MCHC 32.2 RDW Std Deviation 50.6 H Plt Count 207 Neut % (Auto) 79 Lymph % (Auto) 7 L [place] % (Auto) 9 Eos % (Auto) 3 Baso % (Auto) 0 Neut # (Auto) 8.4 H Lymph # (Auto) 0.8 L [place] # (Auto) 1.0 H Eos # (Auto) 0.3 Baso # (Auto) 0.0 Immature Gran # (Auto) 0.10 H Absolute Nucleated RBC 0.00 Immature Gran % 1 H Nucleated RBC % 0 PT INR APTT Sodium 142 Potassium 4.1 Chloride 108 H Carbon Dioxide 26.7 Anion Gap 7 BUN 22 Creatinine 1.2 Estim Creat Clear Calc 37.9 L eGFR 45 L BUN/Creatinine Ratio 18 Glucose 148 H D Calculated Osmolality 289 Calcium 8.3 Corrected Calcium 8.5 Magnesium 2.0 Iron 24 L TIBC 181 L Iron Saturation 13 L Unsat Iron Binding 157 L Ferritin 249 Total Bilirubin 0.5 AST 43 H ALT 48 Alkaline Phosphatase 96 Lactate Dehydrogenase Troponin I 0.059 H* Cancelled B-Natriuretic Peptide Total Protein 6.4 Albumin 3.8 Globulin 2.6 Albumin/Globulin Ratio 1.5 TSH Free T4 Ur Collection Type Urine Color Urine Clarity Urine pH Ur Specific [place] Urine Protein Urine Glucose (UA) Urine Ketones Urine Blood Urine Nitrite Urine Bilirubin Urine Urobilinogen (Auto) Ur Leukocyte Esterase Urine RBC Urine WBC Ur Squamous Epith Cells Urine Bacteria Hyaline Casts Ur Culture Indicated? Urine Opiates Screen Urine Fentanyl Screen Ur Barbiturates Screen U Amphetamin/Meth Scrn U Benzodiazepines Scrn U Cocaine Metab Screen U Marijuana (THC) Screen SARS-CoV-2 Ag (Rapid) Negative Quality Measures Quality Measures none Advance care planning discussed with:: patient Assessment & Plan Assessment Current Active Medications: Generic Name Dose Route Start Last Admin Trade Name Freq PRN Reason Stop Dose Admin Acetaminophen 650 mg 06/06/25 22:04 Acetaminophen 325 Mg Tablet PO 07/06/25 22:03 Q6H PRN Fever >100.4 Amiodarone HCl 200 mg 06/07/25 09:00 06/07/25 08:27 Amiodarone Hcl 200 Mg Tablet PO 07/07/25 08:59 200 mg DAILY FARHAT Administration Aspirin 81 mg 06/07/25 09:00 06/07/25 08:28 Aspirin Ec 81 Mg Tabec PO 07/07/25 08:59 81 mg DAILY FARHAT Administration Atorvastatin Calcium 80 mg 06/07/25 21:00 Atorvastatin Calcium 10 Mg Tablet PO 07/07/25 20:59 HS FARHAT Cilostazol 100 mg 06/07/25 09:00 06/07/25 08:28 Cilostazol 50 Mg Tablet PO 07/07/25 08:59 100 mg BID FARHAT Administration Clopidogrel Bisulfate 75 mg 06/07/25 09:00 06/07/25 08:28 Clopidogrel Bisulfate 75 Mg Tablet PO 07/07/25 08:59 75 mg DAILY FARHAT Administration Dextrose 25 ml 06/06/25 23:12 Dextrose 50%-Water Inj 50 Ml Syringe IV 07/06/25 23:11 Q15MIN PRN BG 50-70 responsive npo pt Dextrose 50 ml 06/06/25 23:12 Dextrose 50%-Water Inj 50 Ml Syringe IV 07/06/25 23:11 Q15MIN PRN BG <50 OR BG <70 & pt unresponsive Furosemide 40 mg 06/07/25 09:00 06/07/25 08:29 Furosemide Inj 10 Mg/Ml 4ml Vial IVP 07/07/25 08:59 40 mg BID FARHAT Administration Gabapentin 300 mg 06/07/25 09:00 06/07/25 08:28 Gabapentin 300 Mg Capsule PO 07/07/25 08:59 300 mg BID FARHAT Administration Glucagon 1 mg 06/06/25 23:12 Glucagon Inj 1 Mg Vial IM Q15MIN PRN BG <70, and no IV access Heparin Sodium (Porcine) 5,000 unit 06/07/25 09:00 06/07/25 08:29 Heparin Sod Inj 5000 Unit/Ml Vial SC 06/21/25 08:59 5,000 unit BID FRAHAT Administration Influenza Virus Vaccine Quadrival 0.5 ml 06/10/25 08:00 Influenza Virus 0.5 Ml Syringe IMi 06/10/25 08:01 .ONCE ONE Insulin Degludec 24 unit 06/07/25 09:00 06/07/25 08:30 Insulin Degludec 5 Unit/0.05 Ml (Per 5 Units) SC 07/07/25 08:59 24 unit QDAY FARHAT Administration Insulin Human Lispro 0 unit 06/07/25 04:30 06/07/25 11:48 Insulin Lispro (Admelog) 1 Unit/0.01 Ml Unit SC 07/07/25 04:29 Not Given ACHS [facility] Protocol Lisinopril 20 mg 06/07/25 09:00 06/07/25 08:28 Lisinopril 20 Mg Tablet PO 07/07/25 08:59 20 mg DAILY FARHAT Administration Ondansetron HCl 4 mg 06/06/25 22:04 Ondansetron Inj 2 Mg/Ml Inj 2 Ml IVP 07/06/25 22:03 Q6H PRN NAUSEA OR VOMITING Protocol Oxybutynin Chloride 5 mg 06/07/25 09:00 06/07/25 08:28 Oxybutynin Chlor 5 Mg Tablet PO 07/07/25 08:59 5 mg BID FARHAT Administration Pantoprazole Sodium 40 mg 06/07/25 09:00 06/07/25 08:28 Pantoprazole 40 Mg Tablet PO 07/07/25 08:59 40 mg QDAY FARHAT Administration Promethazine HCl/Dextromethorphan 5 ml 06/07/25 04:40 06/07/25 04:50 Promethazine/Dm Syrup 5 Ml Dose PO 07/07/25 04:39 5 ml QID PRN Administration cough Tramadol HCl 50 mg 06/07/25 11:24 06/07/25 11:41 Tramadol Hcl 50 Mg Tablet PO 06/12/25 11:23 50 mg QID PRN Administration Pain (Scale Score 6-10) Plan 84-year-old female past medical history of A-fib, COPD, hypertension, coronary artery disease status post triple-vessel bypass in December 2023, diabetes, peripheral artery disease, hyperlipidemia, aortic stenosis s/p TAVR, HFpEF who presented for shortness of breath and cough, admitted for acute exacerbation of HFpEF leading to acute hypoxic respiratory failure. #Acute hypoxic respiratory failure, secondary to #Acute exacerbation of HFpEF - Patient endorsed shortness of breath, onset two days ago. - History of HFpEF, last EF 60-65% 04/2018 and EF 70-75% 10/2023. - BNP 565. - Physical exam included diffuse crackles heard on auscultation, 2+ pitting edema of lower extremities bilaterally. - CXR 06/06: mild heart failure, significant pneumonia right base and right middle lobe with possible right pleural fluid. - Improvement with diuresis (IV furosemide). Plan: * Lasix 40 mg IV push twice daily; goal net -2L/24h. * Strict ins and outs. * Fluid restriction 1500 mL. * Monitor urine output, aj in place. * Cardiology consulted. Follows Dr. Sullivan. * JACOBO ordered, pending read. * Supplemental O2 as needed, wean as tolerated. #NSTEMI, likely supply demand ischemia type II [place] #Triple-vessel coronary artery disease, s/p CABG (12/2023) - Troponin 0.056 --> 0.066 --> 0.059. - EKG showed no evidence of acute ST segment changes. Plan: * Restarted home aspirin 81 mg daily. * Restarted home clopidogrel 75 mg daily. * Restarted home atorvastatin 80mg daily. * Cardiology consulted. #Paroxysmal atrial fibrillation - Currently rate controlled. - EKG 06/07: PVCs, HR 84, sinus rhythm. Plan: * Restarted home amiodarone 200mg daily for rhythm control. * Restarted home aspirin 81 mg daily. * Restarted home clopidogrel 75 mg daily. * Monitor for arrhythmia on telemetry. * Cardiology consulted. * Maintain K > 4.0, Mg > 2.0. #COPD - 30-pack year smoking history. - Patient does not use home oxygen. - Less likely COPD exacerbation at this time as patient has crackles on exam, BNP elevated, response to diuresis. Plan * Titrate supplemental O2 to maintain SpO2 88?92% to avoid worsening hypercapnia. * Monitor for signs of respiratory failure, consider ABG if severe or deteriorating. * Escalate to noninvasive ventilation if persistent hypoxemia, hypercapnia or increased work of breathing. * Initiate/increase frequency of Duoneb if need. #Acute Kidney Injury on CKD? Follows Dr. Hayes. Admission labs: BUN 13, Cr 1.4, eGFR 37. Baseline Cr: ~1.0 (per chart review). Plan: * Daily renal panel to trend BUN, Cr, and electrolytes. * Avoid nephrotoxins * Renally dose meds as appropriate. * Strict I&Os, monitor urine output closely. * Monitor for signs of volume overload or uremic symptoms. #Hypertension Plan: * Restarted home lisinopril 20 mg daily. #Insulin-dependent diabetes - Presented with glucose 380 on admission. - Hemoglobin A1c 7.7 on 05/2025. - Home medications: 38 units of glargine subcu nightly. Plan: * Degludec 24 units daily. * Insulin sliding scale. * Carb consistent diet. * Bedside blood glucose ACHS. #Peripheral artery disease - Per patient's son, patient is having a balloon angioplasty procedure at the end of the month with Dr. Sullivan. Plan: * Restarted home cilostazol 100 mg once a day. #Hyperlipidemia Plan: * Restarted home atorvastatin 80 mg daily Health Maintenance Disposition: tele DVT prophylaxis: Lovenox 40 mg subcu daily GI prophylaxis: Pantoprazole 40 mg IV daily Diet: Carb consistent Aj: in place Lines: Peripheral IV CODE STATUS: FULL Patient plan of care was discussed with the senior resident, Dr. Mancilla, and attending physician, . Maritza Argueta, DO PGY-1
--- NOTE | 2025-06-07 15:50 | PC.NURSE ---
patient desats to 85 RA from going from laying to sitting position
[2025-06-07] MEDS: cefTRIAXone/D5w 1gm IV premix 1 GM/50 ML BAG IV (15:51)
--- NOTE | 2025-06-07 15:55 | PC.SS ---
CONSTRUCTION SERVICES TECHNICIAN informed bedside nurse of need to conduct room air evaluation on behalf of the patient to assess for home oxygen need.
--- NOTE | 2025-06-07 17:51 | PC.PT ---
Patient is safe to transfer to a chair at bedside with a FWW and 1 staff assist. RN made aware.
[2025-06-07] MEDS: ATORVASTATIN CALCIUM 10 MG TABLET 80 MG PO (20:35)
[2025-06-08] VITALS (10 sets, daily range): BP systolic 111–123; BP diastolic 54–74; PULSE 65–95; RESP 15–24; TEMP 36.2–37.2; O2SAT 93–96; BMI 32.9
[2025-06-08 07:03] LABS: Basophils # (Auto) 0.1 Thou/mm3 (0.0-0.2); Basophils % (Auto) 0 % (0-2.5); Eosinophils # (Auto) 0.5 Thou/mm3 (0.0-0.5); Eosinophils % (Auto) 5 % (0-10); Hematocrit 34.8 % (36.0-46.0); Hemoglobin 11.6 g/dL (12.0-16.0); Immature Granulocytes Auto 0.08 Thou/mm3 (0.00-0.00); Lymphocytes # (Auto) 1.0 Thou/mm3 (1.0-4.8); Lymphocytes % (Auto) 9 % (10-50); Mean Corpuscular HGB Conc 33.3 g/dl (31.0-37.0); Mean Corpuscular Hemoglobin 31.3 pg (25.0-35.0); Mean Corpuscular Volume 94 fL (80-100); Monocytes # (Auto) 1.2 Thou/mm3 (0.0-0.8); Monocytes % (Auto) 11 % (0-12); Neutrophils # (Auto) 8.3 Thou/mm3 (1.8-7.7); Neutrophils % (Auto) 75 % (37-80); Nucleated Red Blood Cell # 0.00 Thou/mm3 (0.00-0.00); Nucleated Red Blood Cell % 0 /100 WBC (0); Platelet Count 235 Thou/mm3 (140-440); RDW Standard Deviation 50.4 fL (36.4-46.3); Red Blood Count 3.71 Miln/mm3 (4.00-5.20); White Blood Count 11.1 Thou/mm3 (3.6-11.0)
[2025-06-08 07:26] LABS: Alanine Aminotransferase 47 U/L (10-49); Albumin, Serum 4.0 gm/dL (3.4-4.8); Albumin/Globulin Ratio 1.4 (1.2-2.2); Alkaline Phosphatase 100 U/L (46-116); Anion Gap 11 (7-16); Aspartate Amino Transferase 38 U/L (0-34); BUN/Creatinine Ratio 18 Ratio (12-20); Bilirubin,Total 0.5 mg/dL (0.3-1.2); Blood Urea Nitrogen 21 mg/dL (9-23); Calcium 8.4 mg/dL (8.3-10.6); Calcium (Corrected) 8.4 mg/dL (8.5-10.1); Carbon Dioxide 27.7 mMol/L (20.0-31.0); Chloride 104 mMol/L (98-107); Creatinine (Component) 1.2 mg/dL (0.6-1.3); Estimated Creatinine Clearance 37.9 mL/min (>60); Globulin 2.9 gm/dL (2.3-3.5); Glucose 65 mg/dL (74-106); Magnesium 2.1 mg/dL (1.6-2.6); Osmolality,Calculated 285 (275-295); Potassium 3.7 mMol/L (3.4-5.1); Sodium 143 mMol/L (136-145); Total Protein 6.9 gm/dL (5.7-8.2); eGFR 45 See Note
[2025-06-08] MEDS: OXYBUTYNIN CHLOR 5 MG TABLET PO ×2 (08:10→21:13)
[2025-06-08] MEDS: cefTRIAXone/D5w 1gm IV premix 1 GM/50 ML BAG IV (08:10)
[2025-06-08] MEDS: GABAPENTIN 300 MG CAPSULE PO ×2 (08:10→21:13)
[2025-06-08] MEDS: PANTOPRAZOLE 40 MG TABLET PO (08:11)
[2025-06-08] MEDS: AMIODARONE HCL 200 MG TABLET PO (08:12)
[2025-06-08] MEDS: ASPIRIN EC 81 MG TABEC PO (08:12)
[2025-06-08] MEDS: HEPARIN SOD INJ 5000 UNIT/ML VIAL SC ×2 (08:12→21:14)
[2025-06-08] MEDS: CLOPIDOGREL BISULFATE 75 MG TABLET PO (08:12)
[2025-06-08] MEDS: FUROSEMIDE INJ 10 MG/ML 4ML VIAL 40 MG IVP ×2 (08:12→21:14)
[2025-06-08] MEDS: INSULIN DEGLUDEC 5 UNIT/0.05 ML (PER 5 UNITS) 24 UNIT SC (08:13)
[2025-06-08] MEDS: PROMETHAZINE/DM SYRUP 5 ML DOSE PO ×3 (08:29→21:12)
[2025-06-08] MEDS: ACETAMINOPHEN 325 MG TABLET 650 MG PO ×2 (08:29→21:19)
--- NOTE | 2025-06-08 08:32 | XR_ITS ---
Examination: Venous duplex lower extremity sonogram, bilateral. Date and time of exam: June 08, 2025, 1219 hours INDICATIONS: Bilateral leg pain and swelling beginning 1 week ago Technique: Multiple sonographic images of the deep venous system have been obtained. B-mode/2-D grayscale imaging of vascular structures and Doppler spectral analysis (waveforms) and color performed Both legs are examined. Findings: Deep venous systems do not demonstrate abnormal echogenicity. Right popliteal cyst 5.2 cm All visualized deep veins exhibit compressibility. All visualized deep veins exhibit augmentation. Impression: Negative for deep vein thrombosis
--- NOTE | 2025-06-08 09:26 | ESPR_ITS ---
<Statement entered by Gloria Benoit MD - 06/17/25 09:20> I reviewed above note and agree with findings and plans. I have also personally examined the patient with medicine team and went over assessment and plan with medical team including planning intern and resident physician. Documentation for date of: 06/08/25 Subjective Subjective Interval history: Patient seen at the bedside this morning. She reports a productive cough, though lung sounds remain clear to auscultation bilaterally. The patient began desaturating on room air yesterday, will arrange home oxygen. The right lower extremity appears more swollen than the left. A Doppler ultrasound was obtained and was negative for DVT. The patient has not had a bowel movement since admission, though she reports having had diarrhea two days prior to admission. Patient noted improved appetite, stating this was the first time she has eaten a full meal since admission. Blood glucose levels will be monitored closely to determine whether insulin adjustments are needed now that intake has improved. The patient is currently on 3L NC, saturating well and without respiratory distress. We will continue IV furosemide 40 mg BID, as she appears to be responding appropriately. Ceftriaxone will also be continued for treatment of pneumonia. Exam Vital Signs Temp Pulse Resp BP Pulse Ox O2 Del Method O2 Flow Rate 97.5 F 93 19 112/67 94 L Nasal Cannula 3 06/08/25 08:00 06/08/25 08:12 06/08/25 08:00 06/08/25 08:12 06/08/25 08:00 06/08/25 08:00 06/08/25 08:00 Narrative Exam Physical Exam General: Awake and in no acute distress. Conversational and non-toxic appearing. NC 3L. HEENT: Normocephalic, atraumatic, mucous membranes dry. Heart: Regular rate and rhythm, no murmurs. Symmetric chest rise, no use of accessory muscles. Lungs: Clear to auscultation bilaterally. Abdomen: Soft, nondistended, nontender. No guarding or rebound tenderness. Neurologic: Alert and oriented x3, no gross neurological deficit, and patient able to move all 4 extremities. Extremities: 2+ pitting edema in feet lower extremities bilaterally up to the thighs. 2+ radial and dorsalis pedis pulses bilaterally. Skin: No rash or ecchymoses. Psychiatric: Cooperative, appropriate mood and affect Objective Labs 06/10/25 04:55 06/10/25 04:55 Labs: Laboratory Results - last 24 hr 06/08/25 06:03 WBC 11.1 H RBC 3.71 L Hgb 11.6 L Hct 34.8 L MCV 94 MCH 31.3 MCHC 33.3 RDW Std Deviation 50.4 H Plt Count 235 Neut % (Auto) 75 Lymph % (Auto) 9 L [place] % (Auto) 11 Eos % (Auto) 5 Baso % (Auto) 0 Neut # (Auto) 8.3 H Lymph # (Auto) 1.0 [place] # (Auto) 1.2 H Eos # (Auto) 0.5 Baso # (Auto) 0.1 Immature Gran # (Auto) 0.08 H Absolute Nucleated RBC 0.00 Immature Gran % 1 H Nucleated RBC % 0 Sodium 143 Potassium 3.7 Chloride 104 Carbon Dioxide 27.7 Anion Gap 11 BUN 21 Creatinine 1.2 Estim Creat Clear Calc 37.9 L eGFR 45 L BUN/Creatinine Ratio 18 Glucose 65 L D Calculated Osmolality 285 Calcium 8.4 Corrected Calcium 8.4 L Magnesium 2.1 Total Bilirubin 0.5 AST 38 H ALT 47 Alkaline Phosphatase 100 Total Protein 6.9 Albumin 4.0 Globulin 2.9 Albumin/Globulin Ratio 1.4 Quality Measures Quality Measures VTE prophylaxis Advance care planning discussed with:: patient Assessment & Plan Assessment Current Active Medications: Generic Name Dose Route Start Last Admin Trade Name Freq PRN Reason Stop Dose Admin Acetaminophen 650 mg 06/06/25 22:04 06/08/25 08:29 Acetaminophen 325 Mg Tablet PO 07/06/25 22:03 650 mg Q6H PRN Administration Fever >100.4 Amiodarone HCl 200 mg 06/07/25 09:00 06/08/25 08:12 Amiodarone Hcl 200 Mg Tablet PO 07/07/25 08:59 200 mg DAILY FARHAT Administration Aspirin 81 mg 06/07/25 09:00 06/08/25 08:12 Aspirin Ec 81 Mg Tabec PO 07/07/25 08:59 81 mg DAILY FARHAT Administration Atorvastatin Calcium 80 mg 06/07/25 21:00 06/07/25 20:35 Atorvastatin Calcium 10 Mg Tablet PO 07/07/25 20:59 80 mg HS FARHAT Administration Cilostazol 100 mg 06/07/25 09:00 06/08/25 08:11 Cilostazol 50 Mg Tablet PO 07/07/25 08:59 100 mg BID FARHAT Administration Clopidogrel Bisulfate 75 mg 06/07/25 09:00 06/08/25 08:12 Clopidogrel Bisulfate 75 Mg Tablet PO 07/07/25 08:59 75 mg DAILY FARHAT Administration Dextrose 25 ml 06/06/25 23:12 Dextrose 50%-Water Inj 50 Ml Syringe IV 07/06/25 23:11 Q15MIN PRN BG 50-70 responsive npo pt Dextrose 50 ml 06/06/25 23:12 Dextrose 50%-Water Inj 50 Ml Syringe IV 07/06/25 23:11 Q15MIN PRN BG <50 OR BG <70 & pt unresponsive Furosemide 40 mg 06/07/25 09:00 06/08/25 08:12 Furosemide Inj 10 Mg/Ml 4ml Vial IVP 07/07/25 08:59 40 mg BID FARHAT Administration Gabapentin 300 mg 06/07/25 09:00 06/08/25 08:10 Gabapentin 300 Mg Capsule PO 07/07/25 08:59 300 mg BID FARHAT Administration Glucagon 1 mg 06/06/25 23:12 Glucagon Inj 1 Mg Vial IM Q15MIN PRN BG <70, and no IV access Heparin Sodium (Porcine) 5,000 unit 06/07/25 09:00 06/08/25 08:12 Heparin Sod Inj 5000 Unit/Ml Vial SC 06/21/25 08:59 5,000 unit BID FARHAT Administration Ceftriaxone Sodium/Dextrose 1 gm in 50 mls @ 100 mls/hr 06/07/25 14:10 06/08/25 08:10 Rocephin/D5w 1gm Iv Premix IV 06/14/25 14:09 100 mls/hr QDAY FARHAT Administration Influenza Virus Vaccine Quadrival 0.5 ml 06/10/25 08:00 Influenza Virus 0.5 Ml Syringe IMi 06/10/25 08:01 .ONCE ONE Insulin Degludec 24 unit 06/07/25 09:00 06/08/25 08:13 Insulin Degludec 5 Unit/0.05 Ml (Per 5 Units) SC 07/07/25 08:59 24 unit QDAY FARHAT Administration Insulin Human Lispro 0 unit 06/07/25 04:30 06/08/25 07:31 Insulin Lispro (Admelog) 1 Unit/0.01 Ml Unit SC 07/07/25 04:29 Not Given ACHS FARHAT Protocol Lisinopril 20 mg 06/07/25 09:00 06/08/25 08:10 Lisinopril 20 Mg Tablet PO 07/07/25 08:59 20 mg DAILY FARHAT Administration Ondansetron HCl 4 mg 06/06/25 22:04 Ondansetron Inj 2 Mg/Ml Inj 2 Ml IVP 07/06/25 22:03 Q6H PRN NAUSEA OR VOMITING Protocol Oxybutynin Chloride 5 mg 06/07/25 09:00 06/08/25 08:10 Oxybutynin Chlor 5 Mg Tablet PO 07/07/25 08:59 5 mg BID FARHAT Administration Pantoprazole Sodium 40 mg 06/07/25 09:00 06/08/25 08:11 Pantoprazole 40 Mg Tablet PO 07/07/25 08:59 40 mg QDAY FARHAT Administration Promethazine HCl/Dextromethorphan 5 ml 06/07/25 04:40 06/08/25 08:29 Promethazine/Dm Syrup 5 Ml Dose PO 07/07/25 04:39 5 ml QID PRN Administration cough Tramadol HCl 50 mg 06/07/25 11:24 06/08/25 04:41 Tramadol Hcl 50 Mg Tablet PO 06/12/25 11:23 50 mg QID PRN Administration Pain (Scale Score 6-10) Plan 84-year-old female past medical history of A-fib, COPD, hypertension, coronary artery disease status post triple-vessel bypass in December 2023, diabetes, peripheral artery disease, hyperlipidemia, aortic stenosis s/p TAVR, HFpEF who presented for shortness of breath and cough, admitted for acute exacerbation of HFpEF leading to acute hypoxic respiratory failure. #Acute hypoxic respiratory failure, secondary to #Acute exacerbation of HFpEF - Patient endorsed shortness of breath, onset two days ago. - History of HFpEF, last EF 60-65% 04/2018 and EF 70-75% 10/2023. - BNP 565. - Physical exam included diffuse crackles heard on auscultation, 2+ pitting edema of lower extremities bilaterally. - CXR 06/06: mild heart failure, significant pneumonia right base and right middle lobe with possible right pleural fluid. - Improvement with diuresis (IV furosemide). Plan: * Lasix 40 mg IV push twice daily; goal net -2L/24h. * Strict ins and outs. * Fluid restriction 1500 mL. * Monitor urine output, aj in place. * Cardiology consulted. Follows Dr. Sullivan. * JACOBO ordered, pending read. * Supplemental O2 as needed, wean as tolerated. #NSTEMI, likely supply demand ischemia type II [place] #Triple-vessel coronary artery disease, s/p CABG (12/2023) - Troponin 0.056 --> 0.066 --> 0.059. - EKG showed no evidence of acute ST segment changes. - Ultrasound of bilateral LE 06/08: negative for DVT. Plan: * Restarted home aspirin 81 mg daily. * Restarted home clopidogrel 75 mg daily. * Restarted home atorvastatin 80mg daily. * Cardiology consulted. #Paroxysmal atrial fibrillation - Currently rate controlled. - EKG 06/07: PVCs, HR 84, sinus rhythm. Plan: * Restarted home amiodarone 200mg daily for rhythm control. * Restarted home aspirin 81 mg daily. * Restarted home clopidogrel 75 mg daily. * Monitor for arrhythmia on telemetry. * Cardiology consulted. * Maintain K > 4.0, Mg > 2.0. #COPD - 30-pack year smoking history. - Patient does not use home oxygen. - Less likely COPD exacerbation at this time as patient has crackles on exam, BNP elevated, response to diuresis. Plan * Titrate supplemental O2 to maintain SpO2 88?92% to avoid worsening hypercapnia. * Monitor for signs of respiratory failure, consider ABG if severe or deteriorating. * Escalate to noninvasive ventilation if persistent hypoxemia, hypercapnia or increased work of breathing. * Initiate/increase frequency of Duoneb if need. #Acute Kidney Injury on CKD (improving) - Follows Dr. Hayes. - Admission labs: BUN 13, Cr 1.4, eGFR 37. - Baseline Cr: ~1.0 (per chart review). Plan: * Daily renal panel to trend BUN, Cr, and electrolytes. * Avoid nephrotoxins. * Renally dose meds as appropriate. * Strict I&Os, monitor urine output closely. * Monitor for signs of volume overload or uremic symptoms. #Hypertension Plan: * Restarted home lisinopril 20 mg daily. #Insulin-dependent diabetes - Presented with glucose 380 on admission. - Hemoglobin A1c 7.7 on 05/2025. - Home medications: 38 units of glargine subcu nightly. Plan: * Degludec 24 units daily. * Insulin sliding scale. * Carb consistent diet. * Bedside blood glucose ACHS. #Peripheral artery disease - Per patient's son, patient is having a balloon angioplasty procedure at the end of the month with Dr. Sullivan. Plan: * Restarted home cilostazol 100 mg once a day. #Hyperlipidemia Plan: * Restarted home atorvastatin 80 mg daily Health Maintenance Disposition: tele DVT prophylaxis: Lovenox 40 mg subcu daily GI prophylaxis: Pantoprazole 40 mg IV daily Diet: Carb consistent Aj: in place Lines: Peripheral IV CODE STATUS: FULL Patient plan of care was discussed with attending physician, . Maritza Argueta DO PGY-1
--- NOTE | 2025-06-08 13:22 | PC.SS ---
OPERATIONS MANAGER/COORDINATOR conducted bedside contact with the patient conduct initial assessment and to discuss discharge planning.? Patient confirmed demographic information.? Patient resides at home with son, Paramjit Mckinnon .? Patient utilizes a walker to assist with ambulation.? Patient does not utilize home oxygen.? Patient is currently on 3L nasal cannula.? Patient describes ability to complete ADL?s independently.? Patient identified son, Paramjit Mckinnon ; as surrogate medical decision maker.? Patient?s PCP is Dr. Vo.? security services manager to submit referral for patient to obtain oxygen.? No preferred vendor identified.? Discharge plan is for the patient to return home.? Family will provide transportation.? No further discharge needs identified by the patient.? No further intervention required at this time, social welfare research worker will be available to address any further concerns.? Next of Kin: Paramjit Mckinnon D/C Plan: Home
--- NOTE | 2025-06-08 13:25 | PC.SS ---
Oxygen Pt is discharged in a chronic stable state and has been treated optimally and has other respiratory needs. Oxygen has been ordered due to CHF.
--- NOTE | 2025-06-08 14:37 | PC.SS ---
DME referral submitted on [facility]. Referral also submitted to [facility] via [facility] fax. Results are pending.
[2025-06-08] MEDS: INSULIN LISPRO (AdmeLOG) 1 UNIT/0.01 ML UNIT SC ×2 (17:38→21:23)
[2025-06-08] MEDS: ATORVASTATIN CALCIUM 10 MG TABLET 80 MG PO (21:13)
[2025-06-09] VITALS (12 sets, daily range): BP systolic 97–137; BP diastolic 62–76; PULSE 70–88; RESP 17–22; TEMP 36.4–37.6; O2SAT 92–96; BMI 32.5
[2025-06-09 06:06] LABS: Basophils # (Auto) 0.1 Thou/mm3 (0.0-0.2); Basophils % (Auto) 1 % (0-2.5); Eosinophils # (Auto) 1.6 Thou/mm3 (0.0-0.5); Eosinophils % (Auto) 15 % (0-10); Hematocrit 32.1 % (36.0-46.0); Hemoglobin 10.4 g/dL (12.0-16.0); Immature Granulocytes Auto 0.12 Thou/mm3 (0.00-0.00); Lymphocytes # (Auto) 1.3 Thou/mm3 (1.0-4.8); Lymphocytes % (Auto) 12 % (10-50); Mean Corpuscular HGB Conc 32.4 g/dl (31.0-37.0); Mean Corpuscular Hemoglobin 31.0 pg (25.0-35.0); Mean Corpuscular Volume 96 fL (80-100); Monocytes # (Auto) 1.0 Thou/mm3 (0.0-0.8); Monocytes % (Auto) 9 % (0-12); Neutrophils # (Auto) 6.8 Thou/mm3 (1.8-7.7); Neutrophils % (Auto) 62 % (37-80); Nucleated Red Blood Cell # 0.00 Thou/mm3 (0.00-0.00); Nucleated Red Blood Cell % 0 /100 WBC (0); Platelet Count 230 Thou/mm3 (140-440); RDW Standard Deviation 51.4 fL (36.4-46.3); Red Blood Count 3.35 Miln/mm3 (4.00-5.20); White Blood Count 10.9 Thou/mm3 (3.6-11.0)
[2025-06-09 06:30] LABS: Alanine Aminotransferase 38 U/L (10-49); Albumin, Serum 3.6 gm/dL (3.4-4.8); Albumin/Globulin Ratio 1.3 (1.2-2.2); Alkaline Phosphatase 88 U/L (46-116); Anion Gap 8 (7-16); Aspartate Amino Transferase 28 U/L (0-34); BUN/Creatinine Ratio 18 Ratio (12-20); Bilirubin,Total 0.5 mg/dL (0.3-1.2); Blood Urea Nitrogen 21 mg/dL (9-23); Calcium 8.1 mg/dL (8.3-10.6); Calcium (Corrected) 8.4 mg/dL (8.5-10.1); Carbon Dioxide 29.4 mMol/L (20.0-31.0); Chloride 105 mMol/L (98-107); Creatinine (Component) 1.2 mg/dL (0.6-1.3); Estimated Creatinine Clearance 37.7 mL/min (>60); Globulin 2.8 gm/dL (2.3-3.5); Glucose 79 mg/dL (74-106); Magnesium 2.0 mg/dL (1.6-2.6); Osmolality,Calculated 285 (275-295); Phosphorous 3.3 mg/dL (2.4-5.1); Potassium 4.1 mMol/L (3.4-5.1); Sodium 142 mMol/L (136-145); Total Protein 6.4 gm/dL (5.7-8.2); eGFR 45 See Note
[2025-06-09] MEDS: GABAPENTIN 300 MG CAPSULE PO ×2 (09:13→20:17)
[2025-06-09] MEDS: CLOPIDOGREL BISULFATE 75 MG TABLET PO (09:14)
[2025-06-09] MEDS: ASPIRIN EC 81 MG TABEC PO (09:14)
[2025-06-09] MEDS: OXYBUTYNIN CHLOR 5 MG TABLET PO ×2 (09:15→20:17)
[2025-06-09] MEDS: AMIODARONE HCL 200 MG TABLET PO (09:15)
[2025-06-09] MEDS: PANTOPRAZOLE 40 MG TABLET PO (09:16)
[2025-06-09] MEDS: cefTRIAXone/D5w 1gm IV premix 1 GM/50 ML BAG IV (09:16)
[2025-06-09] MEDS: FUROSEMIDE INJ 10 MG/ML 4ML VIAL 40 MG IVP (09:20)
[2025-06-09] MEDS: HEPARIN SOD INJ 5000 UNIT/ML VIAL SC ×2 (09:21→20:17)
[2025-06-09] MEDS: INSULIN DEGLUDEC 5 UNIT/0.05 ML (PER 5 UNITS) 20 UNIT SC (09:21)
[2025-06-09] MEDS: POLYETHYLENE GLYCOL 17 GM PACKET PO (11:01)
[2025-06-09] MEDS: SENNA/DOCUSATE SOD 1 TAB TABLET PO (11:01)
[2025-06-09] MEDS: INSULIN LISPRO (AdmeLOG) 1 UNIT/0.01 ML UNIT SC ×2 (12:10→17:18)
[2025-06-09] MEDS: PROMETHAZINE/DM SYRUP 5 ML DOSE PO ×2 (12:55→19:34)
--- NOTE | 2025-06-09 14:35 | ESPR_ITS ---
<Statement entered by Gloria Benoit MD - 06/17/25 09:24> I reviewed above note and agree with findings and plans. I have also personally examined the patient with medicine team and went over assessment and plan with medical team including supply chain intern and resident physician. Documentation for date of: 06/09/25 Subjective Subjective Interval history: No acute overnight events. Denies new or worsening symptoms. Although still requiring oxygen. Reports persistent productive cough as well. Tolerating oral intake. However no bowel movement yet, will continue with bowel rest. No adequate response to LASIX, remains fluid overloaded lower extremity as well as crackles on lungs, and will start BUMEX. Morning GLUCOSE below normal level, decreased DEGLUDEC to 20 units q. day. Exam Vital Signs Temp Pulse Resp BP Pulse Ox O2 Del Method O2 Flow Rate 97.8 F 85 17 102/67 93 L Nasal Cannula 1 06/09/25 12:00 06/09/25 12:00 06/09/25 12:00 06/09/25 12:00 06/09/25 12:00 06/09/25 12:00 06/09/25 12:00 Narrative Exam Physical Exam General: Awake and in no acute distress. Conversational and non-toxic appearing. NC 3L. HEENT: Normocephalic, atraumatic, mucous membranes dry. Heart: Regular rate and rhythm, no murmurs. Symmetric chest rise, no use of accessory muscles. Lungs: Clear to auscultation bilaterally. Abdomen: Soft, nondistended, nontender. No guarding or rebound tenderness. Neurologic: Alert and oriented x3, no gross neurological deficit, and patient able to move all 4 extremities. Extremities: 2+ pitting edema in feet lower extremities bilaterally up to the thighs. 2+ radial and dorsalis pedis pulses bilaterally. Skin: No rash or ecchymoses. Psychiatric: Cooperative, appropriate mood and affect Objective Labs 06/09/25 05:15 06/09/25 05:15 Labs: Laboratory Results - last 24 hr 06/09/25 05:15 WBC 10.9 RBC 3.35 L Hgb 10.4 L Hct 32.1 L MCV 96 MCH 31.0 MCHC 32.4 RDW Std Deviation 51.4 H Plt Count 230 Neut % (Auto) 62 Lymph % (Auto) 12 [place] % (Auto) 9 Eos % (Auto) 15 H Baso % (Auto) 1 Neut # (Auto) 6.8 Lymph # (Auto) 1.3 [place] # (Auto) 1.0 H Eos # (Auto) 1.6 H Baso # (Auto) 0.1 Immature Gran # (Auto) 0.12 H Absolute Nucleated RBC 0.00 Immature Gran % 1 H Nucleated RBC % 0 Sodium 142 Potassium 4.1 Chloride 105 Carbon Dioxide 29.4 Anion Gap 8 BUN 21 Creatinine 1.2 Estim Creat Clear Calc 37.7 L eGFR 45 L BUN/Creatinine Ratio 18 Glucose 79 Calculated Osmolality 285 Calcium 8.1 L Corrected Calcium 8.4 L Phosphorus 3.3 Magnesium 2.0 Total Bilirubin 0.5 AST 28 ALT 38 Alkaline Phosphatase 88 Total Protein 6.4 Albumin 3.6 Globulin 2.8 Albumin/Globulin Ratio 1.3 Quality Measures Quality Measures VTE prophylaxis Advance care planning discussed with:: patient Assessment & Plan Assessment Current Active Medications: Generic Name Dose Route Start Last Admin Trade Name Freq PRN Reason Stop Dose Admin Acetaminophen 650 mg 06/06/25 22:04 06/08/25 21:19 Acetaminophen 325 Mg Tablet PO 07/06/25 22:03 650 mg Q6H PRN Administration Fever >100.4 Amiodarone HCl 200 mg 06/07/25 09:00 06/09/25 09:15 Amiodarone Hcl 200 Mg Tablet PO 07/07/25 08:59 200 mg DAILY FARHAT Administration Aspirin 81 mg 06/07/25 09:00 06/09/25 09:14 Aspirin Ec 81 Mg Tabec PO 07/07/25 08:59 81 mg DAILY FARHAT Administration Atorvastatin Calcium 80 mg 06/07/25 21:00 06/08/25 21:13 Atorvastatin Calcium 10 Mg Tablet PO 07/07/25 20:59 80 mg HS FARHAT Administration Cilostazol 100 mg 06/07/25 09:00 06/09/25 09:12 Cilostazol 50 Mg Tablet PO 07/07/25 08:59 100 mg BID FARHAT Administration Clopidogrel Bisulfate 75 mg 06/07/25 09:00 06/09/25 09:14 Clopidogrel Bisulfate 75 Mg Tablet PO 07/07/25 08:59 75 mg DAILY FARHAT Administration Dextrose 25 ml 06/06/25 23:12 Dextrose 50%-Water Inj 50 Ml Syringe IV 07/06/25 23:11 Q15MIN PRN BG 50-70 responsive npo pt Dextrose 50 ml 06/06/25 23:12 Dextrose 50%-Water Inj 50 Ml Syringe IV 07/06/25 23:11 Q15MIN PRN BG <50 OR BG <70 & pt unresponsive Furosemide 40 mg 06/07/25 09:00 06/09/25 09:20 Furosemide Inj 10 Mg/Ml 4ml Vial IVP 07/07/25 08:59 40 mg BID FARHAT Administration Gabapentin 300 mg 06/07/25 09:00 06/09/25 09:13 Gabapentin 300 Mg Capsule PO 07/07/25 08:59 300 mg BID FARHAT Administration Glucagon 1 mg 06/06/25 23:12 Glucagon Inj 1 Mg Vial IM Q15MIN PRN BG <70, and no IV access Heparin Sodium (Porcine) 5,000 unit 06/07/25 09:00 06/09/25 09:21 Heparin Sod Inj 5000 Unit/Ml Vial SC 06/21/25 08:59 5,000 unit BID FARHAT Administration Ceftriaxone Sodium/Dextrose 1 gm in 50 mls @ 100 mls/hr 06/07/25 14:10 06/09/25 09:16 Rocephin/D5w 1gm Iv Premix IV 06/14/25 14:09 100 mls/hr QDAY FARHAT Administration Influenza Virus Vaccine Quadrival 0.5 ml 06/10/25 08:00 Influenza Virus 0.5 Ml Syringe IMi 06/10/25 08:01 .ONCE ONE Insulin Degludec 20 unit 06/09/25 09:00 06/09/25 09:21 Insulin Degludec 5 Unit/0.05 Ml (Per 5 Units) SC 07/09/25 08:59 20 unit QDAY FARHAT Administration Protocol Insulin Human Lispro 0 unit 06/07/25 04:30 06/09/25 12:10 Insulin Lispro (Admelog) 1 Unit/0.01 Ml Unit SC 07/07/25 04:29 2 unit ACHS FARHAT Administration Protocol Lisinopril 20 mg 06/07/25 09:00 06/09/25 09:13 Lisinopril 20 Mg Tablet PO 07/07/25 08:59 20 mg DAILY FARHAT Administration Ondansetron HCl 4 mg 06/06/25 22:04 Ondansetron Inj 2 Mg/Ml Inj 2 Ml IVP 07/06/25 22:03 Q6H PRN NAUSEA OR VOMITING Protocol Oxybutynin Chloride 5 mg 06/07/25 09:00 06/09/25 09:15 Oxybutynin Chlor 5 Mg Tablet PO 07/07/25 08:59 5 mg BID FARHAT Administration Pantoprazole Sodium 40 mg 06/07/25 09:00 06/09/25 09:16 Pantoprazole 40 Mg Tablet PO 07/07/25 08:59 40 mg QDAY FARHAT Administration Polyethylene Glycol 17 gm 06/09/25 10:15 06/09/25 11:01 Polyethylene Glycol 17 Gm Packet PO 07/09/25 10:14 17 gm QDAY FARHAT Administration Promethazine HCl/Dextromethorphan 5 ml 06/07/25 04:40 06/09/25 12:55 Promethazine/Dm Syrup 5 Ml Dose PO 07/07/25 04:39 5 ml QID PRN Administration cough Sennosides 1 tab 06/09/25 10:15 06/09/25 11:01 Senna/Docusate Sod 1 Tab Tablet PO 07/09/25 10:14 1 tab QDAY FARHAT Administration Protocol Tramadol HCl 50 mg 06/07/25 11:24 06/09/25 09:16 Tramadol Hcl 50 Mg Tablet PO 06/12/25 11:23 50 mg QID PRN Administration Pain (Scale Score 6-10) Plan 84-year-old female past medical history of A-fib, COPD, hypertension, coronary artery disease status post triple-vessel bypass in December 2023, diabetes, peripheral artery disease, hyperlipidemia, aortic stenosis s/p TAVR, HFpEF who presented for shortness of breath and cough, admitted for acute exacerbation of HFpEF leading to acute hypoxic respiratory failure. #Acute hypoxic respiratory failure, secondary to #Acute exacerbation of HFpEF - Patient endorsed shortness of breath, onset two days ago. - History of HFpEF, last EF 60-65% 04/2018 and EF 70-75% 10/2023. - BNP 565. - Physical exam included diffuse crackles heard on auscultation, 2+ pitting edema of lower extremities bilaterally. - CXR 06/06: mild heart failure, significant pneumonia right base and right middle lobe with possible right pleural fluid. - Improvement with diuresis (IV furosemide). Plan: * Continue BUMEX 1 mg BID * Strict ins and outs. * Fluid restriction 1500 mL. * Monitor urine output, aj in place. * Cardiology consulted. Follows Dr. Sullivan. * JACOBO ordered, pending read. * Supplemental O2 as needed, wean as tolerated. #NSTEMI, likely supply demand ischemia type II AL #Triple-vessel coronary artery disease, s/p CABG (12/2023) - Troponin 0.056 --> 0.066 --> 0.059. - EKG showed no evidence of acute ST segment changes. - Ultrasound of bilateral LE 06/08: negative for DVT. Plan: * Restarted home aspirin 81 mg daily. * Restarted home clopidogrel 75 mg daily. * Restarted home atorvastatin 80mg daily. * Cardiology consulted. #Paroxysmal atrial fibrillation - Currently rate controlled. - EKG 06/07: PVCs, HR 84, sinus rhythm. Plan: * Restarted home amiodarone 200mg daily for rhythm control. * Restarted home aspirin 81 mg daily. * Restarted home clopidogrel 75 mg daily. * Monitor for arrhythmia on telemetry. * Cardiology consulted. * Maintain K > 4.0, Mg > 2.0. #COPD - 30-pack year smoking history. - Patient does not use home oxygen. - Less likely COPD exacerbation at this time as patient has crackles on exam, BNP elevated, response to diuresis. Plan * Titrate supplemental O2 to maintain SpO2 88?92% to avoid worsening hypercapnia. * Monitor for signs of respiratory failure, consider ABG if severe or deteriorating. * Escalate to noninvasive ventilation if persistent hypoxemia, hypercapnia or increased work of breathing. * Initiate/increase frequency of Duoneb if need. #Acute Kidney Injury on CKD (improving) - Follows Dr. Hayes. - Admission labs: BUN 13, Cr 1.4, eGFR 37. - Baseline Cr: ~1.0 (per chart review). Plan: * Daily renal panel to trend BUN, Cr, and electrolytes. * Avoid nephrotoxins. * Renally dose meds as appropriate. * Strict I&Os, monitor urine output closely. * Monitor for signs of volume overload or uremic symptoms. #Hypertension Plan: * Restarted home lisinopril 20 mg daily. #Insulin-dependent diabetes - Presented with glucose 380 on admission. - Hemoglobin A1c 7.7 on 05/2025. - Home medications: 38 units of glargine subcu nightly. Plan: * Degludec 20 units daily. * Insulin sliding scale. * Carb consistent diet. * Bedside blood glucose ACHS. #Peripheral artery disease - Per patient's son, patient is having a balloon angioplasty procedure at the end of the month with Dr. Sullivan. Plan: * Restarted home cilostazol 100 mg once a day. #Hyperlipidemia Plan: * Restarted home atorvastatin 80 mg daily Health Maintenance Disposition: tele DVT prophylaxis: Lovenox 40 mg subcu daily GI prophylaxis: Pantoprazole 40 mg IV daily Diet: Carb consistent Aj: in place Lines: Peripheral IV CODE STATUS: FULL Case was discussed with attending physician. Jackie Mancilla, PGY II This document was transcribed using voice recognition technology. Minor inaccuracies may be present.
[2025-06-09] MEDS: ATORVASTATIN CALCIUM 10 MG TABLET 80 MG PO (20:17)
[2025-06-09] MEDS: BUMETANIDE INJ 0.25 MG/ML VIAL 4 ML 1 MG IVP (20:18)
[2025-06-10] VITALS (8 sets, daily range): BP systolic 120–133; BP diastolic 55–79; PULSE 60–79; RESP 17–26; TEMP 36.1–36.8; O2SAT 93–96; BMI 34.0; BMI 13.0
[2025-06-10] MEDS: PROMETHAZINE/DM SYRUP 5 ML DOSE PO ×2 (04:17→11:48)
[2025-06-10 06:14] LABS: Basophils # (Auto) 0.1 Thou/mm3 (0.0-0.2); Basophils % (Auto) 0 % (0-2.5); Eosinophils # (Auto) 1.7 Thou/mm3 (0.0-0.5); Eosinophils % (Auto) 14 % (0-10); Hematocrit 30.4 % (36.0-46.0); Hemoglobin 10.0 g/dL (12.0-16.0); Immature Granulocytes Auto 0.15 Thou/mm3 (0.00-0.00); Lymphocytes # (Auto) 1.3 Thou/mm3 (1.0-4.8); Lymphocytes % (Auto) 11 % (10-50); Mean Corpuscular HGB Conc 32.9 g/dl (31.0-37.0); Mean Corpuscular Hemoglobin 31.2 pg (25.0-35.0); Mean Corpuscular Volume 95 fL (80-100); Monocytes # (Auto) 0.9 Thou/mm3 (0.0-0.8); Monocytes % (Auto) 8 % (0-12); Neutrophils # (Auto) 7.5 Thou/mm3 (1.8-7.7); Neutrophils % (Auto) 65 % (37-80); Nucleated Red Blood Cell # 0.00 Thou/mm3 (0.00-0.00); Nucleated Red Blood Cell % 0 /100 WBC (0); Platelet Count 224 Thou/mm3 (140-440); RDW Standard Deviation 50.4 fL (36.4-46.3); Red Blood Count 3.21 Miln/mm3 (4.00-5.20); White Blood Count 11.6 Thou/mm3 (3.6-11.0)
[2025-06-10 06:41] LABS: Alanine Aminotransferase 33 U/L (10-49); Albumin, Serum 3.5 gm/dL (3.4-4.8); Albumin/Globulin Ratio 1.3 (1.2-2.2); Alkaline Phosphatase 83 U/L (46-116); Anion Gap 8 (7-16); Aspartate Amino Transferase 21 U/L (0-34); BUN/Creatinine Ratio 18 Ratio (12-20); Bilirubin,Total 0.3 mg/dL (0.3-1.2); Blood Urea Nitrogen 20 mg/dL (9-23); Calcium 8.0 mg/dL (8.3-10.6); Calcium (Corrected) 8.4 mg/dL (8.5-10.1); Carbon Dioxide 29.5 mMol/L (20.0-31.0); Chloride 104 mMol/L (98-107); Creatinine (Component) 1.1 mg/dL (0.6-1.3); Estimated Creatinine Clearance 42.1 mL/min (>60); Globulin 2.7 gm/dL (2.3-3.5); Glucose 98 mg/dL (74-106); Magnesium 1.8 mg/dL (1.6-2.6); Osmolality,Calculated 283 (275-295); Phosphorous 3.0 mg/dL (2.4-5.1); Potassium 4.0 mMol/L (3.4-5.1); Sodium 141 mMol/L (136-145); Total Protein 6.2 gm/dL (5.7-8.2); eGFR 50 See Note
[2025-06-10] MEDS: BUMETANIDE INJ 0.25 MG/ML VIAL 4 ML 1 MG IVP (08:28)
[2025-06-10] MEDS: cefTRIAXone/D5w 1gm IV premix 1 GM/50 ML BAG IV (08:28)
[2025-06-10] MEDS: GABAPENTIN 300 MG CAPSULE PO (08:34)
[2025-06-10] MEDS: OXYBUTYNIN CHLOR 5 MG TABLET PO (08:34)
[2025-06-10] MEDS: Magnesium Sulfate 2 GM Ivpb 2 GM/50 ML BAG IV (08:34)
[2025-06-10] MEDS: POLYETHYLENE GLYCOL 17 GM PACKET PO (08:35)
[2025-06-10] MEDS: CLOPIDOGREL BISULFATE 75 MG TABLET PO (08:35)
[2025-06-10] MEDS: AMIODARONE HCL 200 MG TABLET PO (08:35)
[2025-06-10] MEDS: ASPIRIN EC 81 MG TABEC PO (08:35)
[2025-06-10] MEDS: PANTOPRAZOLE 40 MG TABLET PO (08:35)
[2025-06-10] MEDS: SENNA/DOCUSATE SOD 1 TAB TABLET PO (08:35)
[2025-06-10] MEDS: INSULIN DEGLUDEC 5 UNIT/0.05 ML (PER 5 UNITS) 20 UNIT SC (08:39)
[2025-06-10] MEDS: HEPARIN SOD INJ 5000 UNIT/ML VIAL SC (08:40)
--- NOTE | 2025-06-10 09:07 | PC.SS ---
Addendum entered and electronically signed by DAKOTA Cabrera 06/10/25 12:52: Remedy staff contacted [employer] stating that son had informed [facility] that DME will be provided by another vendor for delivery today. [employer] followed up with patient's son. Confirmed that [employer] will fill order. [employer] contacted [employer] staff, Lyudmila. [facility] staff confirmed that vendor will fill order and that oxygen will be delivered to hospital today. Original Note: [employer] confirmed with [facility] staff, Martha ; that oxygen order received and that DME will be delivered to patient today. Delivery time is pending. [facility] staff to f/u with [employer] on delivery time. [employer] updated bedside nurse.
--- NOTE | 2025-06-10 11:57 | PD.RESPRO ---
Documentation for date of: 06/10/25 Exam Vital Signs Temp Pulse Resp BP Pulse Ox O2 Del Method O2 Flow Rate 96.9 F 75 26 H 122/79 93 L Nasal Cannula 1 06/10/25 08:00 06/10/25 08:35 06/10/25 08:00 06/10/25 08:35 06/10/25 08:00 06/10/25 08:00 06/10/25 08:00 Objective Labs 06/10/25 04:55 06/10/25 04:55 Labs: Laboratory Results - last 24 hr 06/10/25 04:55 WBC 11.6 H RBC 3.21 L Hgb 10.0 L Hct 30.4 L MCV 95 MCH 31.2 MCHC 32.9 RDW Std Deviation 50.4 H Plt Count 224 Neut % (Auto) 65 Lymph % (Auto) 11 [place] % (Auto) 8 Eos % (Auto) 14 H Baso % (Auto) 0 Neut # (Auto) 7.5 Lymph # (Auto) 1.3 [place] # (Auto) 0.9 H Eos # (Auto) 1.7 H Baso # (Auto) 0.1 Immature Gran # (Auto) 0.15 H Absolute Nucleated RBC 0.00 Immature Gran % 1 H Nucleated RBC % 0 Sodium 141 Potassium 4.0 Chloride 104 Carbon Dioxide 29.5 Anion Gap 8 BUN 20 Creatinine 1.1 Estim Creat Clear Calc 42.1 L eGFR 50 L BUN/Creatinine Ratio 18 Glucose 98 Calculated Osmolality 283 Calcium 8.0 L Corrected Calcium 8.4 L Phosphorus 3.0 Magnesium 1.8 Total Bilirubin 0.3 AST 21 ALT 33 Alkaline Phosphatase 83 Total Protein 6.2 Albumin 3.5 Globulin 2.7 Albumin/Globulin Ratio 1.3 Quality Measures Quality Measures VTE prophylaxis Assessment & Plan Assessment Current Active Medications: Generic Name Dose Route Start Last Admin Trade Name Freq PRN Reason Stop Dose Admin Acetaminophen 650 mg 06/10/25 11:54 Acetaminophen 325 Mg Tablet PO 07/06/25 22:03 Q6H PRN Fever >100.4 AND/OR PAIN 1-5 Amiodarone HCl 200 mg 06/07/25 09:00 06/10/25 08:35 Amiodarone Hcl 200 Mg Tablet PO 07/07/25 08:59 200 mg DAILY FARHAT Administration Aspirin 81 mg 06/07/25 09:00 06/10/25 08:35 Aspirin Ec 81 Mg Tabec PO 07/07/25 08:59 81 mg DAILY FARHAT Administration Atorvastatin Calcium 80 mg 06/07/25 21:00 06/09/25 20:17 Atorvastatin Calcium 10 Mg Tablet PO 07/07/25 20:59 80 mg HS FARHAT Administration Bumetanide 2 mg 06/10/25 21:00 Bumetanide Inj 0.25 Mg/Ml Vial 4 Ml IVP 07/10/25 20:59 BID FARHAT Cilostazol 100 mg 06/07/25 09:00 06/10/25 08:35 Cilostazol 50 Mg Tablet PO 07/07/25 08:59 100 mg BID FARHAT Administration Clopidogrel Bisulfate 75 mg 06/07/25 09:00 06/10/25 08:35 Clopidogrel Bisulfate 75 Mg Tablet PO 07/07/25 08:59 75 mg DAILY FARHAT Administration Dextrose 25 ml 06/06/25 23:12 Dextrose 50%-Water Inj 50 Ml Syringe IV 07/06/25 23:11 Q15MIN PRN BG 50-70 responsive npo pt Dextrose 50 ml 06/06/25 23:12 Dextrose 50%-Water Inj 50 Ml Syringe IV 07/06/25 23:11 Q15MIN PRN BG <50 OR BG <70 & pt unresponsive Gabapentin 300 mg 06/07/25 09:00 06/10/25 08:34 Gabapentin 300 Mg Capsule PO 07/07/25 08:59 300 mg BID FARHAT Administration Glucagon 1 mg 06/06/25 23:12 Glucagon Inj 1 Mg Vial IM Q15MIN PRN BG <70, and no IV access Heparin Sodium (Porcine) 5,000 unit 06/07/25 09:00 06/10/25 08:40 Heparin Sod Inj 5000 Unit/Ml Vial SC 06/21/25 08:59 5,000 unit BID FARHAT Administration Ceftriaxone Sodium/Dextrose 1 gm in 50 mls @ 100 mls/hr 06/07/25 14:10 06/10/25 08:28 Rocephin/D5w 1gm Iv Premix IV 06/14/25 14:09 100 mls/hr QDAY FARHAT Administration Insulin Degludec 20 unit 06/09/25 09:00 06/10/25 08:39 Insulin Degludec 5 Unit/0.05 Ml (Per 5 Units) SC 07/09/25 08:59 20 unit QDAY FARHAT Administration Protocol Insulin Human Lispro 0 unit 06/07/25 04:30 06/10/25 11:38 Insulin Lispro (Admelog) 1 Unit/0.01 Ml Unit SC 07/07/25 04:29 Not Given ACHS [facility] Protocol Lisinopril 20 mg 06/07/25 09:00 06/10/25 08:35 Lisinopril 20 Mg Tablet PO 07/07/25 08:59 20 mg DAILY FARHAT Administration Ondansetron HCl 4 mg 06/06/25 22:04 Ondansetron Inj 2 Mg/Ml Inj 2 Ml IVP 07/06/25 22:03 Q6H PRN NAUSEA OR VOMITING Protocol Oxybutynin Chloride 5 mg 06/07/25 09:00 06/10/25 08:34 Oxybutynin Chlor 5 Mg Tablet PO 07/07/25 08:59 5 mg BID FARHAT Administration Pantoprazole Sodium 40 mg 06/07/25 09:00 06/10/25 08:35 Pantoprazole 40 Mg Tablet PO 07/07/25 08:59 40 mg QDAY FARHAT Administration Polyethylene Glycol 17 gm 06/09/25 10:15 06/10/25 08:35 Polyethylene Glycol 17 Gm Packet PO 07/09/25 10:14 17 gm QDAY FARHAT Administration Promethazine HCl/Dextromethorphan 5 ml 06/07/25 04:40 06/10/25 11:48 Promethazine/Dm Syrup 5 Ml Dose PO 07/07/25 04:39 5 ml QID PRN Administration cough Sennosides 1 tab 06/09/25 10:15 06/10/25 08:35 Senna/Docusate Sod 1 Tab Tablet PO 07/09/25 10:14 1 tab QDAY FARHAT Administration Protocol Tramadol HCl 50 mg 06/07/25 11:24 06/09/25 20:17 Tramadol Hcl 50 Mg Tablet PO 06/12/25 11:23 50 mg QID PRN Administration Pain (Scale Score 6-10)
--- NOTE | 2025-06-10 11:58 | ESDS_ITS ---
<Statement entered by Gloria Benoit MD - 06/22/25 09:23> I reviewed above note and agree with findings and plans. I have also personally examined the patient with medicine team and went over assessment and plan with medical team including development intern and resident physician. Planned Discharge Date 06/10/25 DS: Providers Provider Date of admission: 06/06/25 22:04 Primary care physician: Brandt Vo MD Admitting Provider: Marco Antonio Thompson MD Attending Provider on Admission: Marco Antonio Thompson MD Consults: 06/06/25 22:10 Consult to Cardiology Stat Comment: CHF Exacerbation Consulting Provider: Kayleigh Sullivan 06/07/25 12:19 Referral Physical Therapy Routine Comment: Physician Instructions: 06/10/25 09:53 Referral Registered Dietitian Routine Comment: Attending Provider on DC: Gloria Benoit MD Discharging Provider: Maritza Argueta DO Anticipated date of discharge: 06/10/25 DS: Diagnosis Problem List Completed Was Problem List Reviewed/Reconciled?: Yes Hospital Course Hospital Course Hospital course: 84-year-old woman with HFpEF, COPD, diabetes, CAD s/p CABG, and atrial fibrillation, was admitted with acute hypoxic respiratory failure due to an HFpEF exacerbation and right-sided pneumonia. She was treated with diuretics, initially furosemide and later Bumex due to inadequate diuresis, along with fluid restriction and supplemental oxygen, ultimately requiring home oxygen on discharge. Ceftriaxone was continued for pneumonia with gradual improvement in cough and respiratory status. Mild troponin elevation was attributed to type II NSTEMI, without ECG changes, and she was restarted on aspirin, clopidogrel, and atorvastatin. Her atrial fibrillation remained controlled on home amiodarone. LINDY on CKD was monitored and improved with diuresis. Blood glucose was managed with basal insulin and sliding scale.. Physical therapy evaluated the patient, and DVT study for unilateral leg swelling was negative. She stabilized clinically with improved oxygenation. Durable medical equipment, home O2, will be sent to patient's home. Patient is medically and physically stable for discharge. Diagnosis: #Acute hypoxic respiratory failure secondary to acute HFpEF exacerbation #NSTEMI, Type II (demand ischemia) #Coronary artery disease s/p CABG (12/2023) #Paroxysmal atrial fibrillation #COPD #Acute kidney injury #Hypertension #Insulin-dependent diabetes mellitus #Peripheral artery disease #Hyperlipidemia #Aortic stenosis s/p TAVR Discharge Plan: * Follow-up with PCP within 1-2 weeks of discharge. * STOP taking HYDRALYZINE until you discuss with your doctor, your blood pressure has been well-controlled while in the hospital without this medication. * STOP taking POTASSIUM CHLORIDE tablets until you discuss with your doctor. * STOP taking LASIX 40 mg BID. * Continue taking BUMEX 1 mg twice daily (NEW). * Continue taking medications as prescribed below. * Return to Emergency Room if symptoms persist, worsen, or new symptoms develop. Case discussed with my attending . Maritza Argueta DO PGY 1 Status at Discharge Overall status at discharge: patient is back to baseline Time Spent with Patient Time attestation: Total time spent providing and/or coordinating discharge services: Time spent: Greater than 30 minutes Exam Vital Signs Temp Pulse Resp BP Pulse Ox O2 Del Method O2 Flow Rate 96.9 F 75 26 H 122/79 93 L Nasal Cannula 1 06/10/25 08:00 06/10/25 08:35 06/10/25 08:00 06/10/25 08:35 06/10/25 08:00 06/10/25 08:00 06/10/25 08:00 Narrative Exam Physical Exam General: Awake and in no acute distress. Conversational and non-toxic appearing. NC 2L. HEENT: Normocephalic, atraumatic, mucous membranes dry. Heart: Regular rate and rhythm, no murmurs. Symmetric chest rise, no use of accessory muscles. Lungs: Clear to auscultation bilaterally. Abdomen: Soft, nondistended, nontender. No guarding or rebound tenderness. Neurologic: Alert and oriented x3, no gross neurological deficit, and patient able to move all 4 extremities. Extremities: 2+ pitting edema in feet lower extremities bilaterally up to the thighs. 2+ radial and dorsalis pedis pulses bilaterally. Skin: No rash or ecchymoses. Psychiatric: Cooperative, appropriate mood and affect Discharge Plan Plan Patient Disposition: HOME (Self Care) Patient condition on transfer: Stable Care Plan Goals: * Follow-up with PCP within 1-2 weeks of discharge. * STOP taking HYDRALYZINE until you discuss with your doctor, your blood pressure has been well-controlled while in the hospital without this medication. * STOP taking POTASSIUM CHLORIDE tablets until you discuss with your doctor. * STOP taking LASIX 40 mg BID. * Continue taking BUMEX 1 mg twice daily (NEW). * Continue taking medications as prescribed below. * Return to Emergency Room if symptoms persist, worsen, or new symptoms develop. * Follow-up with dashboard developer outpatient. Prescriptions/Referrals Prescriptions/Med Rec: New bumetanide 1 mg tablet 1 mg PO BID Qty: 60 0RF Continued atorvastatin 80 mg tablet 80 mg PO .PM clotrimazole 1 % cream 1 applic topical BID Rx Instructions: dry feet ferrous sulfate 325 mg (65 mg iron) tablet 325 mg PO QDAY lisinopril 20 mg tablet 20 mg PO QDAY insulin glargine [Lantus U-100 Insulin] 100 U/ML solution 38 unit Sub-Q HS Qty: 0 clopidogrel 75 MG tablet 75 mg PO QDAY Qty: 0 tramadol 50 mg Tablet 50 mg PO QID PRN (Reason: Pain (Scale Score 7-10)) gabapentin 300 mg Capsule 300 mg PO BID oxybutynin chloride 5 mg Tablet 5 mg PO BID cilostazol 100 mg Tablet 100 mg PO BID alendronate 70 mg Tablet 70 mg PO QWEEK Rx Instructions: Saturdays calcium carbonate [Calcium 600] 600 mg calcium (1,500 mg) Tablet 600 mg PO BID (DME) FreeStyle Tigre 3 Sensor Device See Rx Instructions .Route Qty: 1 0RF Rx Instructions: As directed trazodone 50 mg Tablet 50 mg PO HS glimepiride 4 mg Tablet 4 mg PO QDAY folic acid 1 mg tablet 1 mg PO QDAY aspirin [Mannie Low Dose Aspirin] 81 mg tablet,delayed release (DR/EC) 81 mg PO QDAY amiodarone 200 mg tablet 200 mg PO DAILY promethazine-DM 6.25-15 mg/5 mL syrup 5 ml PO QID PRN (Reason: cough) ketoconazole 2 % cream 1 applic TOPICAL BID Patient Comments: APPLY TO AFFECTED AREA TWICE A DAY Rx Instructions: To bilateral great toe nails Held potassium chloride 20 mEq Tablet Extended Release 20 meq PO QDAY Hold Instructions: Resume on 06/10/25. Discuss with your doctor prior to resuming this medication hydralazine 50 mg Tablet 50 mg PO TID Hold Instructions: Resume on 06/10/25. Discuss with your doctor prior to resuming this medication Discontinued furosemide 40 mg tablet 40 mg PO BID Referrals: Brandt Vo MD [Primary Care Provider, Family Practice] Patient/Caregiver Discharge Instructions Print Language: Cook Islander Stand Alone Forms: Kristyn Award Info., Patient Portal Info Letter Discharge Order Discharge Orders: Discharge (Routine); Ordered 06/10/25 Ordered By: Maritza Argueta Quality Discharge Quality Measures VTE prophylaxis
[2025-06-10] MEDS: ACETAMINOPHEN 325 MG TABLET 650 MG PO (12:02)
[2025-06-10] MEDS: INSULIN LISPRO (AdmeLOG) 1 UNIT/0.01 ML UNIT SC (17:03)
== END 2025-06-10 19:20 | disposition home or self-care (01) | DRG 280 ==
LOC: SERX 22:06 → SERHOLD 22:32 → S2NX 06-07 04:00
PROVIDERS: Registered Nurse General Practice; Admitting Provider Student in an Organized Health Care Education/Training Program; Emergency Provider Family Medicine; PCP Family Medicine; Visit Provider Student in an Organized Health Care Education/Training Program
DX: I13.0 Hypertensive heart and chronic kidney disease with heart failure and stage 1 through stage 4 chronic kidney disease, or unspecified chronic kidney disease (principal); I50.33 Acute on chronic diastolic (congestive) heart failure; I21.A1 Myocardial infarction type 2; J18.9 Pneumonia, unspecified organism; J96.21 Acute and chronic respiratory failure with hypoxia; J44.0 Chronic obstructive pulmonary disease with (acute) lower respiratory infection; N17.9 Acute kidney failure, unspecified; E11.51 Type 2 diabetes mellitus with diabetic peripheral angiopathy without gangrene; Z79.4 Long term (current) use of insulin; I25.10 Atherosclerotic heart disease of native coronary artery without angina pectoris; E78.5 Hyperlipidemia, unspecified; I48.91 Unspecified atrial fibrillation; Z87.891 Personal history of nicotine dependence; E11.22 Type 2 diabetes mellitus with diabetic chronic kidney disease; I48.0 Paroxysmal atrial fibrillation; N18.9 Chronic kidney disease, unspecified; Z79.02 Long term (current) use of antithrombotics/antiplatelets; Z79.82 Long term (current) use of aspirin; Z79.84 Long term (current) use of oral hypoglycemic drugs; Z79.899 Other long term (current) drug therapy; Z95.2 Presence of prosthetic heart valve; Z95.1 Presence of aortocoronary bypass graft; Z98.61 Coronary angioplasty status
CPT/HCPCS: 36415; 51702; 71045; 80053; 80307; 81001; 82728; 83540; 83550; 83615; 83735; 83880; 84100; 84439; 84443; 84484; 85025; 85610; 85730; 87811; 93005; 93306; 93970; 94667; 96365; 96375; 97162; 99284; A4314; J0360; J0696; J1644; J1815; J1938; J3475; J3490; A9270

== ENCOUNTER → 2025-06-21 | Outpatient (CLI) | payer OTHER, MEDICAID, SELFPAY ==
[2025-06-21 16:47] LABS: Anion Gap 10 (7-16); BUN/Creatinine Ratio 15 Ratio (12-20); Blood Urea Nitrogen 20 mg/dL (9-23); Calcium 9.2 mg/dL (8.3-10.6); Carbon Dioxide 30.2 mMol/L (20.0-31.0); Chloride 104 mMol/L (98-107); Creatinine (Component) 1.3 mg/dL (0.6-1.3); Glucose 94 mg/dL (74-106); Osmolality,Calculated 289 (275-295); Potassium 4.7 mMol/L (3.4-5.1); Sodium 144 mMol/L (136-145); eGFR 41 See Note
== END | disposition home or self-care (01) ==
LOC: COPL 14:33
PROVIDERS: PCP Family Medicine; Referring Provider Family Medicine; Visit Provider Family Medicine
DX: I50.32 Chronic diastolic (congestive) heart failure (principal)
CPT/HCPCS: 36415; 80048

== ENCOUNTER 2025-07-02 06:25 | Day surgery (SDC) | payer OTHER, MEDICAID, SELFPAY ==
--- NOTE | 2025-07-01 07:00 | EKG_ITS ---
[facility] Test Date: 2025-07-01 Pat Name: MALLIKA HADDAD Department: Room: - Gender: Female Director Retirement: ANGELITA : 1940 Requested By: Kayleigh Sullivan Order Number: [id number] Reading MD: Kayleigh Sullivan Measurements Intervals [place] Rate: 76 P: 81 [place]: 183 QRS: -7 QRSD: 116 T: 83 QT: 456 QTc: 514 Interpretive Statements SINUS RHYTHM WITH FREQUENT SUPRAVENTRICULAR PREMATURE COMPLEXES ANTEROLATERAL MYOCARDIAL INFARCTION , OF INDETERMINATE AGE [40+ ms Q WAVE IN I/aVL/V3-V6] Compared to ECG 06/07/2025 09:13:33 No significant changes /store/S0/[id number]
[2025-07-01 15:41] LABS: Basophils # (Auto) 0.0 Thou/mm3 (0.0-0.2); Basophils % (Auto) 1 % (0-2.5); Eosinophils # (Auto) 0.9 Thou/mm3 (0.0-0.5); Eosinophils % (Auto) 12 % (0-10); Hematocrit 37.4 % (36.0-46.0); Hemoglobin 11.9 g/dL (12.0-16.0); Immature Granulocytes Auto 0.02 Thou/mm3 (0.00-0.00); Lymphocytes # (Auto) 1.8 Thou/mm3 (1.0-4.8); Lymphocytes % (Auto) 24 % (10-50); Mean Corpuscular HGB Conc 31.8 g/dl (31.0-37.0); Mean Corpuscular Hemoglobin 30.9 pg (25.0-35.0); Mean Corpuscular Volume 97 fL (80-100); Monocytes # (Auto) 0.5 Thou/mm3 (0.0-0.8); Monocytes % (Auto) 7 % (0-12); Neutrophils # (Auto) 4.1 Thou/mm3 (1.8-7.7); Neutrophils % (Auto) 56 % (37-80); Nucleated Red Blood Cell # 0.00 Thou/mm3 (0.00-0.00); Nucleated Red Blood Cell % 0 /100 WBC (0); Platelet Count 231 Thou/mm3 (140-440); RDW Standard Deviation 55.8 fL (36.4-46.3); Red Blood Count 3.85 Miln/mm3 (4.00-5.20); White Blood Count 7.3 Thou/mm3 (3.6-11.0)
[2025-07-01 15:47] LABS: INR 1.0 (0.9-1.3); Partial Thromboplastin Time 27.1 Seconds (22.0-36.0); Prothrombin Time 11.0 Seconds (9.0-12.2)
[2025-07-01 15:49] LABS: Anion Gap 8 (7-16); BUN/Creatinine Ratio 13 Ratio (12-20); Blood Urea Nitrogen 16 mg/dL (9-23); Calcium 9.6 mg/dL (8.3-10.6); Carbon Dioxide 32.4 mMol/L (20.0-31.0); Chloride 103 mMol/L (98-107); Creatinine (Component) 1.2 mg/dL (0.6-1.3); Glucose 76 mg/dL (74-106); Osmolality,Calculated 285 (275-295); Potassium 3.7 mMol/L (3.4-5.1); Sodium 143 mMol/L (136-145); eGFR 45 See Note
[2025-07-02] VITALS (20 sets, daily range): BP systolic 131–162; BP diastolic 61–88; PULSE 63–84; RESP 14–20; TEMP 36.2–36.6; O2SAT 91–98; BMI 32.4
[2025-07-02] MEDS: DIAZEPAM 5 MG TABLET PO (07:20)
--- NOTE | 2025-07-02 08:36 | ESOP_ITS ---
Cardiac Cath Procedure Procedure Narrative Date of the procedure 07/02/2025 Title of the procedure 1.abdominal aortogram 2.ipsilateral angiogram of the femoral arteries 3.ipsilateral angiogram of the popliteal arteries 4.ipsilateral below the knee angiogram 5.contralateral iliac angiogram 6.contralateral angiogram of the femero popliteal region 7.contralateral angiogram of the below the knee vessels Indication for the procedure This is a 84-year-old female with past medical history of hypertension hyperlipidemia diabetes Patient was complaining of bilateral leg pains GUTIERREZ was showing a right leg 0.7 left leg 0.6 Therefore we continued medical management walking exercise Patient leg symptoms are getting worse unable to tolerate even walking short distances therefore we decided to proceed with invasive assessment with review for intervention. Procedure This is done in the cardiac lab under continue electrocardiographic monitoring intermittent blood pressure monitoring Left femoral access obtained using modified Seldinger technique and 5 Italian sheath was placed Through the 5 Italian sheath ipsilateral right iliac angiogram right femoral popliteal angiogram and right below the knee vessel angiograms were done Following that IM catheter used to obtain abdominal aortogram and runoff of the contralateral iliofemoral region Subsequently the IM catheter was moved down to the contralateral femoral region and femoral-popliteal angiogram was done Following that contralateral below the knee vessel angiogram was done Findings 1.abdominal aortogram shows heavy calcification of the distal abdominal aorta mild atherosclerotic plaquing noted 2.on the right side right common iliac, right external iliac has mild diffuse d isease at the bifurcation between the superficial femoral and deep femoral there is heavy calcification with a 90% lesion Right superficial femoral artery has tandem lesions 60% 70% heavily calcified in the mid section Below-knee vessels of the right leg does not seem to have any significant lesion Right anterior tibial artery and posterior tibial artery runs down to the ankle course and supplies the foot 3.on the left side left common iliac left external iliac has mild diffuse disease Left superficial femoral artery has a 40% plaquing in the midsegment Left anterior and posterior tibial arteries there is minimal disease both runs down to the ankle course and supplies the foot Left peroneal artery disappears in the lower calf Conclusion Significant lesion noted in the right leg at the bifurcation of the right common femoral and superficial femoral arteries We will continue medical management if patient's right leg symptoms get worse we might consider intervention
--- NOTE | 2025-07-02 10:24 | PC.NURSE ---
took over care at 1010 from farnaz dudley.
--- NOTE | 2025-07-02 10:56 | PC.NURSE ---
yohana chowdhury is requesting discharge instruction in yoruba.
--- NOTE | 2025-07-02 11:46 | PC.NURSE ---
took over patient from lorraine dudley at [id number]
--- NOTE | 2025-07-02 14:20 | PC.NURSE ---
patient transferred via wheelchair to personal vehicle with sons. education given to patient and son. both expressed verbal understanding. site is soft, flat, nontender, and no signs of hematoma. dressing is clean dry, and intact. patient alert and oriented. GCS of 15.
== END 2025-07-02 14:10 | disposition home or self-care (01) ==
PROVIDERS: PCP Family Medicine; Referring Provider Internal Medicine; Visit Provider Internal Medicine
PROC: (CPT 75600; principal; 2025-07-02 07:30)
DX: I25.810 Atherosclerosis of coronary artery bypass graft(s) without angina pectoris (principal); I89.0 Lymphedema, not elsewhere classified; I35.0 Nonrheumatic aortic (valve) stenosis; Q21.12 Patent foramen ovale; E78.5 Hyperlipidemia, unspecified; I10 Essential (primary) hypertension; M79.606 Pain in leg, unspecified; E11.9 Type 2 diabetes mellitus without complications; Z98.61 Coronary angioplasty status; Z79.899 Other long term (current) drug therapy; Z79.4 Long term (current) use of insulin; Z79.02 Long term (current) use of antithrombotics/antiplatelets; Z79.82 Long term (current) use of aspirin; Z01.810 Encounter for preprocedural cardiovascular examination
CPT/HCPCS: 36245; 36415; 75710; 80048; 85025; 85610; 85730; 93005; 99152; 99153; A4649; C1760; C1769; C1894; J0168; J0461; J0583; J1643; J2250; J2312; J2371; J3010; J3490; Q9967; A9270; J2305